=== PATIENT | male | born 1960 | race Caucasian/White ===

== ENCOUNTER → 2018-06-25 00:51 | Outpatient (CLI) | payer OTHER, SELFPAY ==
[2018-06-25 11:23] LABS: Prothrombin Time 19.1 sec (9.3-10.8)
== END ==
PROVIDERS: PCP Emergency Medicine; Visit Provider Emergency Medicine
DX: I82.221 Chronic embolism and thrombosis of inferior vena cava (principal); Z79.01 Long term (current) use of anticoagulants
CPT/HCPCS: 36415; 85610

== ENCOUNTER 2018-07-30 05:59 | Outpatient (CLI) | payer OTHER, SELFPAY ==
[2018-07-30 11:54] LABS: Prothrombin Time 22.2 sec (9.3-10.8)
[2018-07-30 12:00] LABS: INR 2.3 (1.0-3.5)
== END 2018-07-30 06:19 ==
LOC: LBO 08:04 → LOS 08:15
PROVIDERS: PCP Emergency Medicine; Visit Provider Emergency Medicine
DX: I82.221 Chronic embolism and thrombosis of inferior vena cava (principal); Z79.01 Long term (current) use of anticoagulants
CPT/HCPCS: 36415; 85610

== ENCOUNTER 2018-08-27 02:47 | Outpatient (CLI) | payer OTHER, SELFPAY ==
[2018-08-27 13:24] LABS: INR 2.6 (1.0-3.5); Prothrombin Time 24.3 sec (9.3-10.8)
== END 2018-08-27 03:07 ==
PROVIDERS: PCP Emergency Medicine; Visit Provider Emergency Medicine
DX: I82.221 Chronic embolism and thrombosis of inferior vena cava (principal); Z79.01 Long term (current) use of anticoagulants
CPT/HCPCS: 36415; 85610

== ENCOUNTER 2018-10-08 01:56 | Outpatient (CLI) | payer OTHER, SELFPAY ==
[2018-10-08 13:10] LABS: INR 2.9 (1.0-3.5); Prothrombin Time 27.1 sec (9.3-10.8)
== END 2018-10-08 02:16 ==
PROVIDERS: PCP Emergency Medicine; Visit Provider Emergency Medicine
DX: I82.221 Chronic embolism and thrombosis of inferior vena cava (principal); Z79.01 Long term (current) use of anticoagulants
CPT/HCPCS: 36415; 85610

== ENCOUNTER 2018-11-12 02:11 | Outpatient (CLI) | payer OTHER, SELFPAY ==
[2018-11-12 11:46] LABS: INR 3.1 (1.0-3.5); Prothrombin Time 31.4 sec (9.3-11.0)
== END 2018-11-12 02:31 ==
PROVIDERS: PCP Emergency Medicine; Visit Provider Emergency Medicine
DX: I82.221 Chronic embolism and thrombosis of inferior vena cava (principal); Z79.01 Long term (current) use of anticoagulants
CPT/HCPCS: 36415; 85610

== ENCOUNTER 2018-12-03 08:26 | Outpatient (CLI) | payer OTHER, SELFPAY ==
[2018-12-03 13:16] LABS: INR 2.8 (0.9-1.1)
== END 2018-12-03 08:46 ==
PROVIDERS: PCP Emergency Medicine; Visit Provider Emergency Medicine
DX: I82.221 Chronic embolism and thrombosis of inferior vena cava (principal); Z79.01 Long term (current) use of anticoagulants
CPT/HCPCS: 36415; 85610

== ENCOUNTER 2018-12-29 02:02 | Outpatient (CLI) | payer OTHER, SELFPAY ==
[2018-12-29 11:32] LABS: INR 3.1 (0.9-1.1); Prothrombin Time 31.6 sec (9.3-11.0)
== END 2018-12-29 02:22 ==
PROVIDERS: PCP Emergency Medicine; Visit Provider Emergency Medicine
DX: I82.221 Chronic embolism and thrombosis of inferior vena cava (principal); Z79.01 Long term (current) use of anticoagulants
CPT/HCPCS: 36415; 85610

== ENCOUNTER 2019-01-25 09:16 | Outpatient (CLI) | payer OTHER, SELFPAY ==
[2019-01-25 10:47] LABS: INR 3.2 (0.9-1.1)
== END 2019-01-25 09:36 ==
PROVIDERS: PCP Emergency Medicine; Visit Provider Emergency Medicine
DX: I82.221 Chronic embolism and thrombosis of inferior vena cava (principal); Z79.01 Long term (current) use of anticoagulants
CPT/HCPCS: 36415; 85610

== ENCOUNTER 2019-03-05 10:26 | Outpatient (CLI) | payer OTHER, SELFPAY ==
[2019-03-05 10:56] LABS: INR 2.3 (0.9-1.1); Prothrombin Time 23.4 sec (9.3-11.0)
== END 2019-03-05 10:46 ==
PROVIDERS: PCP Emergency Medicine; Visit Provider Emergency Medicine
DX: I82.221 Chronic embolism and thrombosis of inferior vena cava (principal); Z79.01 Long term (current) use of anticoagulants
CPT/HCPCS: 36415; 85610

== ENCOUNTER 2019-03-19 10:55 | Outpatient (CLI) | payer OTHER, SELFPAY ==
[2019-03-19 11:35] LABS: INR 2.4 (0.9-1.1); Prothrombin Time 24.5 sec (9.3-11.0)
[2019-03-21 09:54] LABS: PSA, Screening 0.5 ng/ml (0-3.5)
== END 2019-03-19 11:15 ==
PROVIDERS: Urology; PCP Emergency Medicine; Visit Provider Emergency Medicine
DX: Z12.5 Encounter for screening for malignant neoplasm of prostate (principal); I82.221 Chronic embolism and thrombosis of inferior vena cava; Z79.01 Long term (current) use of anticoagulants
CPT/HCPCS: 36415; 84153; 85610

== ENCOUNTER 2019-04-24 10:03 | Outpatient (CLI) | payer OTHER, SELFPAY ==
[2019-04-24 10:32] LABS: Prothrombin Time 25.7 sec (9.3-11.0)
[2019-04-24 10:33] LABS: INR 2.5 (0.9-1.1)
== END 2019-04-24 10:23 ==
PROVIDERS: PCP Emergency Medicine; Visit Provider Emergency Medicine
DX: I82.221 Chronic embolism and thrombosis of inferior vena cava (principal); Z79.01 Long term (current) use of anticoagulants
CPT/HCPCS: 36415; 85610

== ENCOUNTER 2019-06-02 02:02 | Outpatient (CLI) | payer OTHER, SELFPAY ==
[2019-06-02 11:15] LABS: INR 3.2 (0.9-1.1); Prothrombin Time 32.2 sec (9.3-11.0)
== END 2019-06-02 02:22 ==
PROVIDERS: PCP Emergency Medicine; Visit Provider Emergency Medicine
DX: I82.221 Chronic embolism and thrombosis of inferior vena cava (principal); Z79.01 Long term (current) use of anticoagulants
CPT/HCPCS: 36415; 85610

== ENCOUNTER 2019-07-15 03:56 | Outpatient (CLI) | payer OTHER, SELFPAY ==
[2019-07-15 11:01] LABS: Prothrombin Time 20.5 sec (9.3-11.0)
== END 2019-07-15 04:16 ==
PROVIDERS: PCP Emergency Medicine; Visit Provider Emergency Medicine
DX: I82.221 Chronic embolism and thrombosis of inferior vena cava (principal); Z79.01 Long term (current) use of anticoagulants
CPT/HCPCS: 36415; 85610

== ENCOUNTER 2019-08-10 02:32 | Outpatient (CLI) | payer OTHER, SELFPAY ==
[2019-08-10 11:55] LABS: INR 2.7 (0.9-1.1); Prothrombin Time 26.9 sec (9.3-11.0)
== END 2019-08-10 02:52 ==
PROVIDERS: PCP Emergency Medicine; Visit Provider Emergency Medicine
DX: I82.221 Chronic embolism and thrombosis of inferior vena cava (principal); Z79.01 Long term (current) use of anticoagulants
CPT/HCPCS: 36415; 85610

== ENCOUNTER 2019-09-30 01:50 | Outpatient (CLI) | payer OTHER, SELFPAY ==
[2019-09-30 11:01] LABS: INR 2.4 (0.9-1.1); Prothrombin Time 23.9 sec (9.3-11.0)
== END 2019-09-30 02:10 ==
PROVIDERS: PCP Emergency Medicine; Visit Provider Emergency Medicine
DX: I82.221 Chronic embolism and thrombosis of inferior vena cava (principal); Z79.01 Long term (current) use of anticoagulants
CPT/HCPCS: 36415; 85610

== ENCOUNTER 2019-11-03 09:02 | Outpatient (CLI) | payer OTHER, SELFPAY ==
[2019-11-03 11:12] LABS: INR 2.1 (0.9-1.1); Prothrombin Time 20.3 sec (9.3-11.0)
== END 2019-11-03 09:22 ==
PROVIDERS: PCP Emergency Medicine; Visit Provider Emergency Medicine
DX: I82.221 Chronic embolism and thrombosis of inferior vena cava (principal); Z79.01 Long term (current) use of anticoagulants
CPT/HCPCS: 36415; 85610

== ENCOUNTER 2019-12-06 10:00 | Outpatient (CLI) | payer OTHER, SELFPAY ==
[2019-12-06 12:34] LABS: INR 1.3 (0.9-1.1); Prothrombin Time 13.3 sec (9.3-11.0)
== END 2019-12-06 10:20 ==
PROVIDERS: PCP Emergency Medicine; Visit Provider Emergency Medicine
DX: I82.221 Chronic embolism and thrombosis of inferior vena cava (principal); Z79.01 Long term (current) use of anticoagulants
CPT/HCPCS: 36415; 85610

== ENCOUNTER 2019-12-13 02:13 | Outpatient (CLI) | payer OTHER, SELFPAY ==
[2019-12-13 13:48] LABS: Prothrombin Time 28.9 sec (9.3-11.0)
== END 2019-12-13 02:33 ==
PROVIDERS: PCP Emergency Medicine; Visit Provider Emergency Medicine
DX: I82.221 Chronic embolism and thrombosis of inferior vena cava (principal); Z79.01 Long term (current) use of anticoagulants
CPT/HCPCS: 36415; 85610

== ENCOUNTER 2020-01-04 08:55 | Outpatient (CLI) | payer OTHER, SELFPAY ==
[2020-01-04 13:22] LABS: INR 3.2 (0.9-1.1); Prothrombin Time 30.9 sec (9.3-11.0)
== END 2020-01-04 09:15 ==
PROVIDERS: PCP Emergency Medicine; Visit Provider Emergency Medicine
DX: I82.221 Chronic embolism and thrombosis of inferior vena cava (principal); Z79.01 Long term (current) use of anticoagulants
CPT/HCPCS: 36415; 85610

== ENCOUNTER 2020-01-28 09:48 | Outpatient (CLI) | payer OTHER, SELFPAY ==
[2020-01-28 10:14] LABS: INR 2.1 (0.9-1.1); Prothrombin Time 20.4 sec (9.3-11.0)
== END 2020-01-28 10:08 ==
PROVIDERS: PCP Emergency Medicine; Visit Provider Emergency Medicine
DX: I82.221 Chronic embolism and thrombosis of inferior vena cava (principal); Z79.01 Long term (current) use of anticoagulants
CPT/HCPCS: 36415; 85610

== ENCOUNTER 2020-03-22 10:00 | Outpatient (CLI) | payer OTHER, SELFPAY ==
[2020-03-22 13:51] LABS: INR 2.3 (0.9-1.1); Prothrombin Time 22.4 sec (9.3-11.0)
[2020-03-23 09:19] LABS: PSA, Screening 0.5 ng/mL (0.0-3.5)
== END 2020-03-22 10:20 ==
PROVIDERS: PCP Emergency Medicine; Referring Provider Urology; Visit Provider Emergency Medicine
DX: I82.221 Chronic embolism and thrombosis of inferior vena cava (principal); Z79.01 Long term (current) use of anticoagulants; Z12.5 Encounter for screening for malignant neoplasm of prostate
CPT/HCPCS: 36415; 84153; 85610

== ENCOUNTER 2020-05-10 04:43 | Outpatient (CLI) | payer OTHER, SELFPAY ==
[2020-05-11 11:45] LABS: INR 2.6 (0.9-1.1); Prothrombin Time 25.3 sec (9.3-11.0)
== END 2020-05-10 05:03 ==
PROVIDERS: PCP Emergency Medicine; Visit Provider Emergency Medicine
DX: D68.59 Other primary thrombophilia (principal)
CPT/HCPCS: 85610

== ENCOUNTER 2020-07-27 01:21 | Outpatient (CLI) | payer OTHER, SELFPAY ==
[2020-07-27 12:59] LABS: INR 2.8 (0.9-1.1); Prothrombin Time 27.3 sec (9.3-11.0)
== END 2020-07-27 01:41 ==
PROVIDERS: PCP Emergency Medicine; Visit Provider Emergency Medicine
DX: I82.221 Chronic embolism and thrombosis of inferior vena cava (principal); Z79.01 Long term (current) use of anticoagulants
CPT/HCPCS: 36415; 85610

== ENCOUNTER 2020-09-07 01:38 | Outpatient (CLI) | payer OTHER, SELFPAY ==
[2020-09-07 12:48] LABS: INR 2.7 (0.9-1.1); Prothrombin Time 26.1 sec (9.3-11.0)
== END 2020-09-07 01:58 ==
PROVIDERS: PCP Emergency Medicine; Visit Provider Emergency Medicine
DX: I82.221 Chronic embolism and thrombosis of inferior vena cava (principal); Z79.01 Long term (current) use of anticoagulants
CPT/HCPCS: 36415; 85610

== ENCOUNTER 2020-10-11 10:19 | Outpatient (CLI) | payer OTHER, SELFPAY ==
[2020-10-11 13:02] LABS: INR 2.6 (0.9-1.1); Prothrombin Time 25.3 sec (9.3-11.0)
== END 2020-10-11 10:39 ==
PROVIDERS: PCP Emergency Medicine; Visit Provider Emergency Medicine
DX: I82.221 Chronic embolism and thrombosis of inferior vena cava (principal); Z79.01 Long term (current) use of anticoagulants
CPT/HCPCS: 36415; 85610

== ENCOUNTER 2020-11-08 02:34 | Outpatient (CLI) | payer OTHER, SELFPAY ==
[2020-11-08 12:40] LABS: INR 2.7 (0.9-1.1); Prothrombin Time 26.2 sec (9.3-11.0)
== END 2020-11-08 02:54 ==
PROVIDERS: PCP Emergency Medicine; Visit Provider Emergency Medicine
DX: I82.221 Chronic embolism and thrombosis of inferior vena cava (principal); Z79.01 Long term (current) use of anticoagulants
CPT/HCPCS: 36415; 85610

== ENCOUNTER 2020-12-14 00:33 | Outpatient (CLI) | payer OTHER, SELFPAY ==
[2020-12-14 13:22] LABS: INR 2.1 (0.9-1.1)
== END 2020-12-14 00:53 ==
PROVIDERS: PCP Emergency Medicine; Visit Provider Emergency Medicine
DX: D68.59 Other primary thrombophilia (principal); I82.221 Chronic embolism and thrombosis of inferior vena cava; Z79.01 Long term (current) use of anticoagulants
CPT/HCPCS: 36415; 85610

== ENCOUNTER 2021-01-18 01:02 | Outpatient (CLI) | payer OTHER, SELFPAY ==
[2021-01-18 12:50] LABS: Prothrombin Time 39.7 sec (9.3-11.0)
[2021-01-18 13:00] LABS: INR 4.1 (0.9-1.1)
== END 2021-01-18 01:03 | disposition home or self-care (01) ==
LOC: LOS 01:02
PROVIDERS: PCP Emergency Medicine; Visit Provider Emergency Medicine
DX: Z79.01 Long term (current) use of anticoagulants (principal); I82.221 Chronic embolism and thrombosis of inferior vena cava
CPT/HCPCS: 36415; 85610

== ENCOUNTER 2021-02-27 03:10 | Outpatient (CLI) | payer OTHER, SELFPAY ==
[2021-02-27 12:07] LABS: INR 3.4 (0.9-1.1); Prothrombin Time 33.2 sec (9.3-11.0)
== END 2021-02-27 03:11 | disposition home or self-care (01) ==
LOC: LOS 03:10
PROVIDERS: PCP Emergency Medicine; Visit Provider Emergency Medicine
DX: I82.221 Chronic embolism and thrombosis of inferior vena cava (principal); Z79.01 Long term (current) use of anticoagulants
CPT/HCPCS: 36415; 85610

== ENCOUNTER 2021-03-08 01:06 | Outpatient (CLI) | payer OTHER, SELFPAY ==
[2021-03-08 12:41] LABS: INR 1.8 (0.9-1.1); Prothrombin Time 17.9 sec (9.3-11.0)
== END 2021-03-08 01:07 | disposition home or self-care (01) ==
LOC: LOS 01:06
PROVIDERS: PCP Emergency Medicine; Visit Provider Emergency Medicine
DX: D68.59 Other primary thrombophilia (principal)
CPT/HCPCS: 36415; 85610

== ENCOUNTER 2021-03-22 01:48 | Outpatient (CLI) | payer OTHER, SELFPAY ==
[2021-03-22 13:14] LABS: INR 2.4 (0.9-1.1)
== END 2021-03-22 01:49 | disposition home or self-care (01) ==
LOC: LOS 01:48
PROVIDERS: PCP Emergency Medicine; Visit Provider Emergency Medicine
DX: I82.221 Chronic embolism and thrombosis of inferior vena cava (principal); Z79.01 Long term (current) use of anticoagulants
CPT/HCPCS: 36415; 85610

== ENCOUNTER 2021-04-05 01:18 | Outpatient (CLI) | payer OTHER, SELFPAY ==
[2021-04-05 13:55] LABS: INR 2.5 (0.9-1.1); Prothrombin Time 24.3 sec (9.3-11.0)
== END 2021-04-05 01:19 | disposition home or self-care (01) ==
LOC: LOS 01:21
PROVIDERS: PCP Emergency Medicine; Visit Provider Emergency Medicine
DX: I82.221 Chronic embolism and thrombosis of inferior vena cava (principal); Z79.01 Long term (current) use of anticoagulants
CPT/HCPCS: 36415; 85610

== ENCOUNTER 2021-05-13 02:54 | Outpatient (CLI) | payer OTHER, SELFPAY ==
[2021-05-13 12:29] LABS: INR 2.3 (0.9-1.1); Prothrombin Time 22.6 sec (9.3-11.0)
[2021-05-13 17:00] LABS: PSA, Diagnostic 0.7 ng/mL (0.0-3.5)
== END 2021-05-13 02:55 | disposition home or self-care (01) ==
LOC: LOS 02:54
PROVIDERS: PCP Emergency Medicine; Visit Provider Emergency Medicine
DX: I82.221 Chronic embolism and thrombosis of inferior vena cava (principal); Z79.01 Long term (current) use of anticoagulants; N40.1 Benign prostatic hyperplasia with lower urinary tract symptoms
CPT/HCPCS: 36415; 84153; 85610

== ENCOUNTER 2021-06-28 01:40 | Outpatient (CLI) | payer OTHER, SELFPAY ==
[2021-06-28 13:03] LABS: Prothrombin Time 20.2 sec (9.3-11.0)
== END 2021-06-28 01:41 | disposition home or self-care (01) ==
LOC: LOS 01:40
PROVIDERS: PCP Emergency Medicine; Visit Provider Emergency Medicine
DX: I82.221 Chronic embolism and thrombosis of inferior vena cava (principal); Z79.01 Long term (current) use of anticoagulants
CPT/HCPCS: 36415; 85610

== ENCOUNTER 2021-08-06 01:02 | Outpatient (CLI) | payer OTHER, SELFPAY ==
[2021-08-06 12:33] LABS: INR 2.2 (0.9-1.1); Prothrombin Time 21.8 sec (9.3-11.0)
== END 2021-08-06 01:03 | disposition home or self-care (01) ==
LOC: LOS 01:02
PROVIDERS: PCP Emergency Medicine; Visit Provider Emergency Medicine
DX: I82.221 Chronic embolism and thrombosis of inferior vena cava (principal); Z79.01 Long term (current) use of anticoagulants
CPT/HCPCS: 36415; 85610

== ENCOUNTER 2021-09-13 01:54 | Outpatient (CLI) | payer OTHER, SELFPAY ==
[2021-09-13 10:04] LABS: INR 2.6 (0.9-1.1); Prothrombin Time 25.9 sec (9.3-11.0)
== END 2021-09-13 01:55 | disposition home or self-care (01) ==
LOC: LOS 01:54
PROVIDERS: PCP Emergency Medicine; Visit Provider Emergency Medicine
DX: I82.221 Chronic embolism and thrombosis of inferior vena cava (principal); Z79.01 Long term (current) use of anticoagulants
CPT/HCPCS: 36415; 85610

== ENCOUNTER 2021-10-11 02:50 | Outpatient (CLI) | payer OTHER, SELFPAY ==
[2021-10-11 12:49] LABS: INR 2.3 (0.9-1.1); Prothrombin Time 22.3 sec (9.3-11.0)
== END 2021-10-11 02:51 | disposition home or self-care (01) ==
LOC: LOS 02:51
PROVIDERS: PCP Emergency Medicine; Visit Provider Emergency Medicine
DX: D68.59 Other primary thrombophilia (principal); I74.3 Embolism and thrombosis of arteries of the lower extremities
CPT/HCPCS: 36415; 85610

== ENCOUNTER 2021-11-14 03:17 | Outpatient (CLI) | payer OTHER, SELFPAY ==
[2021-11-14 09:34] LABS: INR 1.7 (0.9-1.1); Prothrombin Time 17.3 sec (9.3-11.0)
== END 2021-11-14 03:18 | disposition home or self-care (01) ==
LOC: LBO 03:18
PROVIDERS: PCP Emergency Medicine; Visit Provider Emergency Medicine
DX: D68.59 Other primary thrombophilia (principal); I74.3 Embolism and thrombosis of arteries of the lower extremities
CPT/HCPCS: 36415; 85610

== ENCOUNTER 2021-12-12 01:58 | Outpatient (CLI) | payer OTHER, SELFPAY ==
[2021-12-12 09:53] LABS: INR 1.8 (0.9-1.1)
== END 2021-12-12 01:59 | disposition home or self-care (01) ==
LOC: LBO 01:58
PROVIDERS: PCP Emergency Medicine; Visit Provider Emergency Medicine
DX: I74.3 Embolism and thrombosis of arteries of the lower extremities (principal); D68.59 Other primary thrombophilia
CPT/HCPCS: 36415; 85610

== ENCOUNTER 2022-01-22 01:36 | Outpatient (CLI) | payer OTHER, SELFPAY ==
[2022-01-22 11:12] LABS: INR 2.2 (0.9-1.1); Prothrombin Time 21.7 sec (9.3-11.0)
== END 2022-01-22 01:37 | disposition home or self-care (01) ==
LOC: LBO 01:36
PROVIDERS: PCP Family Medicine; Visit Provider Emergency Medicine
DX: D68.59 Other primary thrombophilia (principal); I74.3 Embolism and thrombosis of arteries of the lower extremities
CPT/HCPCS: 36415; 85610

== ENCOUNTER 2022-03-14 02:08 | Outpatient (CLI) | payer OTHER, SELFPAY ==
[2022-03-14 09:13] LABS: INR 3.3 (0.9-1.1); Prothrombin Time 32.5 sec (9.3-11.0)
== END 2022-03-14 02:09 | disposition home or self-care (01) ==
LOC: LBO 02:08
PROVIDERS: PCP Family Medicine; Visit Provider Emergency Medicine
DX: D68.59 Other primary thrombophilia (principal); I74.3 Embolism and thrombosis of arteries of the lower extremities; Z79.01 Long term (current) use of anticoagulants
CPT/HCPCS: 36415; 85610

== ENCOUNTER 2022-03-20 02:49 | Outpatient (CLI) | payer OTHER, SELFPAY ==
[2022-03-20 12:46] LABS: INR 2.4 (0.9-1.1); Prothrombin Time 23.4 sec (9.3-11.0)
== END 2022-03-20 02:50 | disposition home or self-care (01) ==
LOC: LOS 02:49
PROVIDERS: Emergency Medicine; PCP Family Medicine; Visit Provider Family Medicine
DX: D68.59 Other primary thrombophilia (principal); I74.3 Embolism and thrombosis of arteries of the lower extremities; Z79.01 Long term (current) use of anticoagulants
CPT/HCPCS: 36415; 85610

== ENCOUNTER 2022-03-28 02:17 | Outpatient (CLI) | payer OTHER, SELFPAY ==
[2022-03-28 12:30] LABS: INR 2.6 (0.9-1.1); Prothrombin Time 25.2 sec (9.3-11.0)
== END 2022-03-28 02:18 | disposition home or self-care (01) ==
LOC: LOS 02:17
PROVIDERS: PCP Family Medicine; Visit Provider Emergency Medicine
DX: D68.59 Other primary thrombophilia (principal); Z79.01 Long term (current) use of anticoagulants
CPT/HCPCS: 36415; 85610

== ENCOUNTER 2022-05-01 02:17 | Outpatient (CLI) | payer OTHER, SELFPAY ==
[2022-05-01 11:00] LABS: Prothrombin Time 28.6 sec (9.3-11.0)
[2022-05-01 18:22] LABS: PSA, Diagnostic 0.6 ng/mL (<=4.5)
== END 2022-05-01 02:18 | disposition home or self-care (01) ==
LOC: LOS 02:17
PROVIDERS: PCP Family Medicine; Visit Provider Urology
DX: D68.59 Other primary thrombophilia (principal); I74.3 Embolism and thrombosis of arteries of the lower extremities
CPT/HCPCS: 36415; 84153; 85610

== ENCOUNTER 2022-06-13 02:27 | Outpatient (CLI) | payer OTHER, SELFPAY ==
[2022-06-13 13:05] LABS: INR 2.6 (0.9-1.1); Prothrombin Time 24.9 sec (9.3-11.0)
== END 2022-06-13 02:28 | disposition home or self-care (01) ==
LOC: LOS 02:27
PROVIDERS: PCP Nurse Practitioner; Visit Provider Emergency Medicine
DX: D68.59 Other primary thrombophilia (principal); Z79.01 Long term (current) use of anticoagulants
CPT/HCPCS: 36415; 85610

== ENCOUNTER 2022-08-01 01:12 | Outpatient (CLI) | payer OTHER, SELFPAY ==
--- OUTSIDE RECORDS SUMMARY | 2022-08-01 01:14 | XMS_ITS | Encounter Summary ---
:1960 Author Organization [facility] [address] Care Team Providers Name Role Phone Lianne Darnell APRN Primary Care Provider Encounter Details Date Type Department Care Team Description 12/14/2014 Ancillary Vascular Surgery at [place] Shannan Ankle ulcer, left, Appointment [facility] with fat layer [facility] [place] [id number] Social History Tobacco Use Types Packs/Day Years Used Date Never Smoker Sex Assigned at Date Recorded Not on file documented as of this encounter Plan of Treatment Not on filedocumented as of this encounter Procedures Procedure Name Priority Date/Time Associated Diagnosis Comme nts TORIBIO, LEGS, MULTIPLE Routine 12/14/2014 2:05 PM Ankle ulcer, le ft, Results for this LEVELS EST with fat layer procedure are in exposed the results section. documented in this encounter Results TORIBIO, legs, multiple levels (12/14/2014 2:05 PM EST) Component Value Ref Test Analysis Performed At [facility] Range Method Time Signature VB Text VASCUBASE Report Department: Vascular Surgery Lab Patient: [id number] (TARIK EATON) CPT Code: 13562 ICD-9: 707.10 Referring Physician: SHANNA TA Indication: ?? Bilateral ankle ulcers, ? PVD ICD9 Diagnosis Code: 707.10 Diabetes Mellitus: ??No Definitions: ?? TORIBIO = Ankle / Brachial Systolic Pressure I ndex, TBI = Toe / Brachial Systolic Pressure Index Findings: Right ?Pressure (mm Hg) ?? TORIBIO ??Waveform ?? Brachial Artery ?118 ? Common Femoral Artery ?Triphasic ?? Pop Fossa ?Triphasic ?? Dorsalis Pedis (Ankle) Artery ?134 ? 1.06 ??Biphasic ?? Posterior Tibial (Ankle) Artery ??141 ? 1.12 ??Biphasic ?? Left ? Pressure (mm Hg) ?? TORIBIO ??Waveform ?? Brachial Artery ?126 ? Common Femoral Artery ?Triphasic ?? Pop Fossa ?Triphasic ?? Dorsalis Pedis (Ankle) Artery ?146 ? 1.16 ??Biphasic ?? Posterior Tibial (Ankle) Artery ??143 ? 1.13 ??Biphasic ?? Interpretation: RIGHT: No significant lower extremity ar terial occlusive disease identified at rest. LEFT: No significant lower extremity arterial oc clusive disease identified at rest. Electronically Signed by: CLARK CAMPA on 2014-12-17 12:44: 14 AM VB Text End of Report VASCUBASE Report Specimen (Source) Anatomical Collection Method Collection Time Re ceived Time Location / / Volume Laterality 12/14/2014 2:05 PM EST Shanna Ta MD VASCULAR ORDERABLES Performing Organization Address City/State/ZIP Code Phon e Number [facility] documented in this encounter Visit Diagnoses Diagnosis Ankle ulcer, left, with fat layer expose d documented in this encounter Care Teams Domestic Helper Relationship Specialty Start Date End Date Lianne Darnell, CONVEYOR WEIGHER OPERATOR PCP - General 12/14/14 04/07/17 documented as of this encounter
--- OUTSIDE RECORDS SUMMARY | 2022-08-01 01:14 | XMS_ITS | Encounter Summary ---
:1960 Author Organization [facility] [place] [address] Care Team Providers Name Role Phone Giorgi Hogue DO Primary Care Provider Reason for Visit Reason Comments Skin Lesion Consultation (Routine) - Closed Specialty Diagnoses / Procedures Referred By Contact Refer red To Contact Dermatology Diagnoses scalp lesion Jose L Carlson MD [facility] Dermatology [address] [place], [place] [address] [place] [address] Fax: Referral ID Status Reason Start Date Expiration Date Visits V isits Requested Authorized [id number] Closed Consult, 03/10/2017 03/10/2018 1 [facility] Encounter Details Date Type Department Care Team Description 04/08/2017 Office Visit Dermatology at [facility], Neoplasm of uncertain behavior of skin; [place] (actinic keratosis); [address] [facility] [place] [address] [facility] [phone] RD-DERMATOLOGY [place] [id number] (Wo rk) Social History Tobacco Use Types Packs/Day Years Used Date Never Smoker Smokeless Tobacco: Never Used Alcohol Use Standard Drinks/Week Comments Yes 1.7 (1 standard drink = 0.6 oz pure alco hol) Sex Assigned at Date Recorded Not on file documented as of this encounter Patient Instructions Patient InstructionsVerónica Friedman MD - 04/08/2017 4:00 PM EDT Apply ammonium lactate cream (Amlactin) to hands as needed for dryness/roughness. Don't use it on open skin since it flores. See attached handout regarding topical treatment for actinic keratoses (pre- cancers) on scalp. Biopsy result will be back in about a week and you'll receive a phone call and/or message via NextMedium. Actinic Keratoses You have been diagnosed today with Actinic Keratosis (AK). These dry, scaly patches are considered the earliest stage in the development of skin cancer. In rare cases, an AK can progress to skin cancer. Because of this risk, AKs are usually treated. You were treated today with Liquid Nitrogen. This is the most common treatment for AKs. Liquid nitrogen is extremely cold, and freezes the surface of the skin, causing the lesion to flake off. Treatment with liquid nitrogen can be uncomfortable, but discomfort should subside after a couple of hours. The area treated will look red and irritated, and it may blister up or turn dark, then fall off. This is normal! You do not need any special treatment for the area, but you may find cold compresses and/or a light application of Vaseline soothing. For best results, do not rub or pick at the healing lesion. Expected healing time is 3-4 weeks. Please contact the Dermatology clinic at [phone] if the lesion has not fully resolved after 6 weeks. Treatment and Wound Care Instructions Your treatment today: You have had a shave biopsy of your skin, which is a removal of tissue for examination under a microscope. This wound will heal without stitches. Allow 3-6 weeks for the wound to heal. If bleeding occurs, hold firm pressure against the wound for 15 minutes. If bleeding continues, calls the office or go to your local emergency room. Please allow 1-2 weeks for the biopsy results to return. Your physician or nurse will contact you with the results by phone or letter; follow-up will be discussed at that time. Wound Care Instructions: You will need to keep the dressing placed over the wound dry and intact for 24 hours. Afterwards, perform the following wound care daily: ?? Wash your hands before changing the dressing. ?? Remove the bandage and clean the area with mild soap and water, then gently pat the area dry. ?? Apply a small amount of Vaseline to the area, then cover the wound with a band-aid. Change your dressing daily until the wound is fully healed. ?? A small amount of yellow drainage is part of normal healing. The area might appear as a small depression with redness around the edge of the wound. This is normal. ?? Please contact the office you you notice any of the following signs of infection: increased tenderness, pain, drainage, or redness that becomes hot or hard around the wound. If you have further questions or concerns, please call the office at [phone]. If it is after 5PM, or a holiday or weekend, please call [phone] and ask for the Tank Worker on-call. documented in this encounter Progress Notes Verónica Friedman MD - 04/08/2017 4:00 PM EDT Images from the original note were not included. DERMATOLOGY - NEW PATIENT NOTE Date of service: 04/08/2017 Tarik Sanchez : 1960 Dermatology Resident Note: Verónica Friedman MD, PGY4 Chief Complaint Patient presents with ??? Skin Lesion HPI: Mr. Tarik Sanchez is a 56 y.o. male. This is a new patient to me, seen in consultation at the request of Jose L Carlson specifically for the evaluation and management of the above problem. Here for lesions on his scalp, present approx 6 months. Symptoms: scaly, sometimes they bleed, non itchy. Leroy atments tried: Dermasal for psoriasis which seems to be helping, tea tree shampoo, triamcinolone (but stopped since it seemed it wasn't helping). While here he'd like a full skin exam. 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 Exposed headand seldom wears hat. He would like his back evaluated. He has a spot on his left mid back that itches and goes numb after sun exposure. Wonders whether it's related to a mole there. He has a darkened area on his inner ankles and believes it's from having had a DVT. Wonders if thereis any treatment option for lightening. Wears compression stocking on side that had the DVT. Also feels like his hands look old. He uses Neutrogena Serbian hand cream and wonders whether there are any other treatment options. Does not wash hands excessively. Past Skin History: None Patient Active Problem List Diagnosis Code ??? Venous insufficiency of leg I87.2 ??? DVT (deep venous thrombosis) hx bilateral LE I82.409 ??? Protein S deficiency D68.59 ??? Venous stasis ulcers of both lower extremities I83.019, I83.029 ??? BPH (benign prostatic hypertrophy) N40.0 ??? History of cleft palate repair Z87.730 Major past medical history from patient's perspective (updated today) DVT Clotting disorder Pre-Procedure Checklist: Pacemaker/defibrillator: No Allergy to lidocaine or epinephrine: No Do we have your permission to leave a voicemail with biopsy results and other detailed health information? Yes [phone] Current Outpatient Prescriptions Medication Sig Dispense Refill ??? warfarin (COUMADIN) 10 mg Tablet Take 10 mg by mouth daily. Pt takes 15 mg on wed/sun ??? finasteride (PROSCAR) 5 mg Tablet Take 5 mg by mouth daily. ??? multivitamin (THERAGRAN) tablet ??? DOCOSAHEXANOIC ACID/EPA (FISH OIL ORAL) ??? Cmzdvvsbdxu-Xyvjkzxee-Tqi C-Mn (GLUCOSAMINE 1500 COMPLEX) 500-400 mg Cap No current facility-administered medications for this visit. No Known Allergies Family History: Melanoma or non-melanoma skin cancer: none Social/Occupational History: Occupation: [employer] Smoking: no Raised on dairy farm Owns boat Review of Systems: - General: Feels well. - Skin: As per HPI; no other skin concerns. Examination: - Constitutional: Patient was alert, well-appearing and in no noticeable distress. - Skin: Skin examination of the scalp, face, chest, abdomen, back, buttocks, bilateral upper and lower extremities including palms and soles was normal with the exception of the findings listed below. External genitalia were not examined. Notable findings/Assessment/Plan: 1. Actinic Keratosis - frontal scalp: numerous gritty pink irregularly shaped thin papules and plaques. - Discussed multiple treatment options including photodynamic therapy and Efudex. Joint decision to start Efudex. - Efudex 5% cream: apply to frontal scalp BID for 3 weeks. Discussed risk for inflammation/irritation and coping strategies. Urged patient to call clinic if response is uncomfortably exuberant. 2. Actinic Keratosis - right dorsal hand: approx scaly irregular pink plaque. - I discussed this condition with the patient and explored therapeutic options. I recommended this be treated with LN2, patient is in agreement to this treatment plan. Procedure Note: Procedure: Destruction of lesion with cryotherapy. Number: 1 Location: as above Discussed procedure and expectations including risks (including risk of hypopigmentation) and benefits. Verbal consent obtained. Frozen with LN2, 15-30 second thaw time, TWICE. There were no complications; the patient tolerated the procedure well. Post-procedure expectations and wound care were reviewed. 3. Blue nevus vs early seborrheic keratosis - Mid upper back, just to the right of spine: 1 x 1 mm homogenous grayish brown macule - Benign appearing. No intervention needed. Patient reassured. 4. Nevus, r/o atypia - Left lateral lower le.4 x 0.3 cm brown irregularly shaped macule with uneven pigmentation. - Recommend biopsy to establish firm diagnosis. Pt agrees. Procedure: Shave removal of lesion. Location: Left lateral lower leg Discussed indications for procedure and expectations including risks and benefits. Verbal consent obtained. Skin prep with alcohol. Local anesthesia with 1% xylocaine, 1/100,000 epinephrine. The lesionwas removed by shave technique to the level of the dermis and submitted to Pathology. Hemostasis obtained. (AlCl and/or electrocautery). There were no complications; the pt. tolerated the procedure well. The wound was dressed. Post-procedure expectations, wound care and activity restrictions were reviewed. Follow-up based on pathology results. 5. 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 - Discussed diagnosis and possible relationship to irritated/inflamed nerve causing paresthesia. Notalgia paresthetica occurs in this location but is a condition characterized by itch rather than numbness. A different type of neurogenic itch (brachoradial pruritus) is thought possibly to be triggered by sun exposure. Perhaps his symptoms share pathophysiology with these other entities. No intervention needed at present given rarity and mildness of symptoms. 6. Hemosiderin deposition - bilateral medial ankles: well demarcated hyperpigmented patches. 2+ DP pulses bilaterally. No peripheral edema. - Continue compression stocking. - Advised pt that there are no effective options for lightening the skin. 7. Irritant/wear and tear hand dermatitis - Scaly flesh-colored thin plaques on dorsal hands. No inflammation. - Recommend OTC ammonium lactate lotion. Do not apply if fissured areas occur. 8. Skin cancer screening - No lesions suspicious for skin cancer on today's full skin exam, except as noted above. The following photos were obtained with patient consent: Left lateral lower leg Follow-up: RTC per path and in 1 year. I, BRADLY SHARP LPN, am documenting this encounter acting as the scribe for and in the presence of Dr. Verónica Friedman. Fatuma Rand, Clinical Scribe I performed the above scribed service and agree with the accuracy of the documentation of this encounter. Verónica Friedman MD, PGY4 Resident in Dermatology [facility] Patient seen and evaluated with staff garment alteration examiner: Jaye Austin MD Section of Dermatology [facility] Jaye Austin MD - 04/08/2017 4:00 PM EDT I directly supervised Dr. Friedman during this office visit. Dr. Friedman presented the history and physicalexam to me. I then saw and examined this patient with Dr. Friedman. We reviewed the history and pertinent details and I confirmed the physical findings. I agree with the details of the history and physicalexam as documented in Dr. Friedman's note. JAYE AUSTIN MD Staff Physician documented in this encounter Plan of Treatment Not on filedocumented as of this encounter Procedures Procedure Name Priority Date/Time Associated Diagnosis Comme nts SPECIMEN TO Routine 04/08/2017 4:38 PM Neoplasm of Results f or this PATHOLOGY (NON-OR) EDT uncertain behavior pro cedure are in of skin the results section. SURGICAL PATHOLOGY Routine 04/08/2017 4:38 PM Res ults for this REPORT EDT procedure are i n the results section. documented in this encounter Results Surgical Pathology Report (04/08/2017 4:38 PM EDT) Component Value Ref Test Analysis Performed At [facility] Range Method Time Signature Surgical [id number] ?Location: [facility] Report The signing pathologist has (i) examined the relevant preparation(s) for the [facility] specimen(s) and (ii) rendered or confirmed the diagnosis(es) . [facility] . ?Surgic al Pathology DIAGNOSIS Skin, left lateral lower leg, shave removal: - LENTIGINOUS JUNCTIONAL NEV US, not identified at the histologic edges in planes of section examined Electronically signed by: ??Nicky VALENZUELA, Jong Booth Verified: ??04/09/2017 ?Dermatopathologist, Bone & Soft Tissue Pathologist DISCUSSION Multiple deeper sections have been examined. CLINICAL INFORMATION Specimen Submitted: A - Skin, left lateral lower leg, shave removal (1) Clinical History: 0.4 x 0.3 cm brown irregularly-shaped macule with uneven pig mentation Clinical Diagnosis: Nevus, rule out atypia SPECIMEN PROCESSING A - Labeled/Fixative: Left lateral lower leg, formalin. Quantity/Size: Single, 0.8 x 0.7 x 0.1 cm. Tissue Description: Shave of soft medina sk in with a central, ill defined area of variegated pigmentation. Sections/Processing: Inked and quadrisected. (T1) ??ksb Specimen (Source) Anatomical Collection Method Collection Time Re ceived Time Location / / Volume Laterality 04/08/2017 4:38 PM EDT Verónica Friedman MD PATHOLOGY/CYTOLOGY ORDERABLE S Performing Organization Address City/State/ZIP [place] [address] Specimen to Pathology (NON-OR) (04/08/2017 4:38 PM EDT) Specimen Anatomical Collection Method Collection Time Receive d Time (Source) Location / / Volume Laterality AP Specimen 04/08/2017 4:38 PM 7 6:48 EDT PM EDT Narrative [facility] - 04/08/2017 6:48 PM EDT Specimen requisition ordered. ??Separate Pathology report to follow Resulting Agency Comment Spec In Lab Jaye Austin MD PATHOLOGY/CYTOLOGY ORDERABLE S Performing Organization Address City/[facility]/ZIP [place] [address] documented in this encounter Visit Diagnoses Diagnosis Neoplasm of uncertain behavior of skin AK (actinic keratosis) Actinic keratosis Skin cancer screening Screening for malignant neoplasm of the skin documented in this encounter Care Teams Crime Scene Specialist Relationship Specialty Start Date End Date Giorgi Hogue DO PCP - General Family Medicine 04/08/[address] [place] [address] documented as of this encounter
--- OUTSIDE RECORDS SUMMARY | 2022-08-01 01:14 | XMS_ITS | Encounter Summary ---
:1960 Author Organization [facility] [place] [address] Care Team Providers Name Role Phone Lianne Garcia APRN Primary Care Provider Reason for Visit Reason Comments Circulatory Problem peripheral venous insuff Establish Care Encounter Details Date Type Department Care Team Description 12/14/2014 Office Visit Vascular Surgery at [facility] stasis ulcers of both lower extremities; [facility] [place] [place] Venous insufficiency of leg; [facility] DVT (deep venous thrombosis), right [facility] [address] Elder ID VASCULAR SURGERY [id number] [place] [id number] [phone] Social History Tobacco Use Types Packs/Day Years Used Date Never Smoker Sex Assigned at Date Recorded Not on file documented as of this encounter Last Filed Vital Signs Vital Sign Reading Time Taken Comments Blood Pressure 106/62 12/14/2014 2:54 PM EST L arm Pulse 62 12/14/2014 2:54 PM EST Temperature - - Respiratory Rate 20 12/14/2014 2:54 PM EST Oxygen Saturation - - Inhaled Oxygen Concentration - - Weight 80.7 kg (178 lb) 12/14/2014 2:54 PM EST Height 185.4 cm (6' 1) 12/14/2014 2:54 PM EST Body Mass Index 23.48 12/14/2014 2:54 PM EST documented in this encounter Patient Instructions Patient InstructionsFilVipin acevedo MD - 12/15/2014 9:03 AM EST We will schedule return to clinic with ultrasound studies, and send you a letter in the mail or callon the phone for the appt. documented in this encounter Progress Notes Vipin Bryan MD - 12/14/2014 3:13 PM EST Tarik Eaton presents to the vascular clinic in consultation from LIANNE GARCIA APRN regarding bilateral lower extremity ulcers and possible venous insufficiency. Mr Eaton is a 54 y.o. who has a hxof RLE DVT many years ago, and is on life-long Coumadin for Protein S deficiency. He developed bilateral medial ankle ulcers R>>L in October, a particularly heavy period of activity for him at work at [employer]. He made it through the holiday nye and then took two weeks off to do leg elevation andget the ulcers healed, with significant improvement by report. 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 There is no reported history of PE, thombophlebitis, bleeding, or leg trauma. 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 Past medical/surgical history: Patient Active Problem List Diagnosis ??? Venous insufficiency of leg ??? DVT (deep venous thrombosis) hx right LE ??? Protein S deficiency ??? Venous stasis ulcers of both lower extremities History Social History ??? Marital Status: Spouse Name: N/A Number of Children: N/A ??? Years of Education: N/A Occupational History ??? Not on file. Social History Main Topics ??? Smoking status: Never Smoker ??? Smokeless tobacco: Not on file ??? Alcohol Use: Not on file ??? Drug Use: Not on file ??? Sexual Activity: Not on file Other Topics Concern ??? Not on file Social History Narrative Family history: includes varicose veins and LE swelling (mother). Current Outpatient Prescriptions on File Prior to Visit Medication Sig Dispense Refill ??? multivitamin (THERAGRAN) tablet ??? DOCOSAHEXANOIC ACID/EPA (FISH OIL ORAL) ??? Gnnzlmifagx-Ykvnlnwui-Hyn C-Mn (GLUCOSAMINE 1500 COMPLEX) 500-400 mg Cap ??? [DISCONTINUED] CIS Free Text Med - Vitamin E-400 ??? [DISCONTINUED] aspirin 325 mg tablet No current facility-administered medications on file prior to visit. Allergies: No Known Allergies On physical exam, the patient is pleasant and conversant. Blood pressure 106/62, pulse 62, resp. rate 20, height 185.4 cm (6' 1), weight 80.74 kg (178 lb). There are no carotid bruits. Lung mcclure areclear bilaterally. Cardiac exam reveals a regular rate and rhythm with no remarkable murmurs or gallops. Abdominal exam reveals no bruits, tenderness, or masses. Femoral pulses are palpable bilaterally. Pedal pulses are palpable bilaterally. On the right lower extremity, there are moderate varicosities, with venous stasis changes and ulceration almost exclusively around the right medial malleolus. Onthe left there are there are mild/moderate varicosities, with venous stasis changes and a smaller ulceration again almost exclusively around the medial malleolus. Both sides appear to have healing edges. There is little/no calf/pedal edema bilaterally, but this is just after removing compression stockings. Both feet are relatively warm and without evidence of emboli or tissue-threatening ischemia. Neurologic exam is focally intact. Imp/Plan: Tarik Eaton is a 54 y.o. year old with bilateral R>L lower extremity venous stasis ulcers by appearance and history, causing significant symptoms that interfere with work. I explained that this is likely related to deep venous insufficiency and possibly some element of superficial venous insufficiency, but in a minority of patients the superficial veins will be the primary etiology. Heneeds a duplex to determine if this is superficial, internet researcher or deep disease (or all 3) before we can determine whether we can alleviate or even palliate these symptoms. I explained that deep venous reflux is not well treated with surgery, and can only be treated with compression stockings and elevation. He is already wearing compression stockings dutifully, and elevating his legs when he gets home from work. We will obtain a duplex to evaluate the superficial and deep venous system valve function, which will help determine options. I explained that even if a surgical solution is possible, there will still be a requirement for long-term therapy with custom compression stockings and leg elevation. This will be difficult at work, but the natural history of this condition is deterioration even with palliative care. Follow-up will be in clinic after his duplex is scheduled. After discussion he seems to understand all of this, and will contact us if the ulcers start to worsen again. 21 minutes of this 30 minute visit were spent in face-face counseling about the aforementioned issues. Vipin Bryan MD documented in this encounter Miscellaneous Notes Addendum Note - Karin Light RN - 12/15/2014 3:22 PM EST Addended by: KARIN LIGHT on: 12/15/2014 03:22 PM Modules accepted: Orders documented in this encounter Plan of Treatment Not on filedocumented as of this encounter Results Venous Valvular Incomp, Bilat Legs (01/17/2015 12:45 PM EST) Component Value Ref Test Analysis Performed At [facility] Chroma Range Method Time Signature VB Text VASCUBASE Report Department: Vascular Surgery Lab Patient: [id number] (TARIK EATON) CPT Code: 35271 ICD-9: 459.81; 454.1 Referring Physician: VIPIN BRYAN Indication: ??History of DVT and bilateral lower extremity venous ulcers, ? valvular incompetence ICD9 Diagnosis Code: 454.1 Venous Insufficiency [459.81]. Findings: Right ?Reflux? Common Femoral Vein ?Reflux ? Femoral Vein ? Reflux ? Popliteal ?Reflux ? Posterior Tibial Vein ??Reflux ? GSV, Near SFJ ?Competent ?? GSV, Proximal Thigh ?Competent ?? GSV, Mid Thigh ? Competent ?? GSV, Distal Thigh ?Competent ?? GSV, ??Knee ? Competent ?? GSV Prox Calf ?Competent ?? GSV, Mid Calf ?Competent ?? SSV ?Competent ?? Left ? Reflux?Diameter (mm) ? ?Depth (mm) ?? Common Femoral Vein ?Competent ? Femoral Vein ? Reflux ? Popliteal ?Reflux ? Posterior Tibial Vein ??Competent ? GSV, Near SFJ ?Reflux ? 5.7 ? 6.0 ?? GSV, Proximal Thigh ?Reflux ? 5.3 ?10.1 ?? GSV, Mid Thigh ? Reflux ? 5.0 ? 8.2 ?? GSV, Distal Thigh ?Reflux ? 5.0 ? 7.4 ?? GSV, ??Knee ? Reflux ? 4.0 ? 6.2 ?? GSV Prox Calf ?Reflux ? 4.9 ? 4.5 ?? GSV, Mid Calf ?Reflux ? 3.8 ? 2.9 ?? GSV, Distal Calf ? Reflux ? 2.7 ? 6.0 ?? SSV ?Competent ? Interpretation: RIGHT: There is non-occlusive deep vein thrombus in the femoral vein from the proximal through distal thigh as well as in the popliteal ve in. Findings consistent with deep venous valvular incompetence. No evidence of superficial venous valvular incompetence. The common femoral , femoral vein through the thigh, popliteal, posterior tibial and peroneal veins are incompetent. There is an inc ompetent internet researcher in the distal medial ankle near the healed ulcer measuring approximately 4.2 mm in diameter (reflux >2.6 seconds). No evidence of superficial vein thrombus. Reflux in the deep system ranges from >0.6 - >3.1 seconds. LEFT: There is non-occlusive deep vein thrombus in the femoral vein from the proximal through mid thigh. Findings consistent with cale p and superficial venous valvular incompetence. The femoral and popliteal veins are incompetent. The great saphe nous vein is incompetent from the level of the saphenofemoral junct ion through the distal calf. There is an incompeten t internet researcher in the mid/distal medial calf measuring approximately 4.2 mm in diameter (reflux >2.5 seconds). No e vidence of superficial vein thrombus.There is a trace amount of reflux in the small saphenous vein. No evidence of superficial vein thrombus. Reflux in the deep system ranges from >1.0 - >1.3 ??seconds . Reflux in the great saphenous vein is > 1.1 seconds. Comparison: ??No previous study in our vascular lab da tabase for comparison. Electronically Signed by: VIPIN BRYAN on 2015-01-17 04:40 :04 PM VB Text End of Report VASCUBASE Report Specimen (Source) Anatomical Collection Method Collection Time Re ceived Time Location / / Volume Laterality 01/17/2015 12:45 PM EST Vipin Bryan MD VASCULAR ORDERABLES Performing Organization Address City/State/ZIP Code Phon e Number VASCUBASE documented in this encounter Visit Diagnoses Diagnosis Venous stasis ulcers of both lower extre mities Venous insufficiency of leg Unspecified venous (peripheral) insuffic iency DVT (deep venous thrombosis), right documented in this encounter Care Teams Operations And Maintenance Supervisor Relationship Specialty Start Date End Date Lianne Garcia, HARDWARE SALES ASSISTANT PCP - General 12/14/14 04/07/17 documented as of this encounter
--- OUTSIDE RECORDS SUMMARY | 2022-08-01 01:14 | XMS_ITS | Encounter Summary ---
:1960 [place] [address] Care Team Providers Name Role Phone Giorgi Hogue DO Primary Care Provider Reason for Visit Reason Comments Skin Check Encounter Details Date Type Department Care Team Description 05/11/2018 Office Visit Dermatology at [facility] [place] Lowell Griggs [place] (actinic keratosis); [facility] MD [place]; [address] Multiple benign nevi; [place] [address] [address] [address] Mcneal angioangie; [phone] [facility] Seborrheic marisol melton -DERMATOLOGY [place] [id number] Social History Tobacco Use Types Packs/Day Years Used Date Never Smoker Smokeless Tobacco: Never Used Alcohol Use Standard Drinks/Week Comments Yes 1.7 (1 standard drink = 0.6 oz pure alco hol) Sex Assigned at Date Recorded Not on file documented as of this encounter Progress Notes Lowell Griggs MD - 05/11/2018 1:15 PM EDT Images from the original note were not included. DEPARTMENT DERMATOLOGY AT [facility] Dermatology At [facility] [address] [facility] [id number] FOLLOW-UP Chief Complaint: lesion History of Present Illness Tarik Sanchez is a 57 y.o. male. Complains of rough lesions on the right hand that were first identified a few months ago. Mildly tender. No bleeding. Never been treated or biopsied. Requests full body skin cancer screening. No other suspicious lesions. Interval changes to Medications and Medical, Family and Social Histories (including alcohol and tobacco use) Since Last Visit 04/08/2017: No significant interval history. Skin Cancer History No personal history of skin cancer No family history of skin cancer Allergies Pollen extracts Medications has a current medication list which includes the following prescription(s): fluorouracil, triamcinolone, warfarin, finasteride, multivitamin, docosahexanoic acid/epa, and glucosamine 1500 complex. Social History Tobacco use - never Alcohol use - yes Review of Systems Significant for no pertinent and acute changes in constitutional, other skin systems upon specific queries. Examination Standby: Wes Jacome-Jr Mood is appropriate. Well developed, well-nourished in no apparent distress, alert and oriented to time, person, place and situation. Patient was asked to disrobe to the level of comfort. Examination of the head - including the scalp,face, ears, nose, lips, tongue, oral mucosa - neck, chest, abdomen, back, axillae, upper and lower extremities, including the nail plates, significant for the following: ?? [place], hyperkeratotic slightly irregular papules on the right dorsum hand x 2, dorsum left hand x 1, hypertrophic AK on the right dorsum hand x 1 [Total AK: 4] ?? firm keratin papule with no thrombosed vessel on the lateral aspect of the ball of the left foot ?? Well-demarcated, round or oval, medina or brown macules and papules with benign morphology on the head, neck, trunk and extremities ?? Moderate to severe sun-damage on sun-exposed areas including irregular medina macules on sun-exposedareas and epidermal thinning with dyspigmentation and/or telangectia sun-exposed areas of the neck, chest. ?? Multiple, mcneal red 1-4mm papules on the head, trunk ?? Scattered, stuck-on, well-demarcated, medina or brown, waxy or warty papules c/w SKs on the back Assessment and Plan Actinic Keratoses Counseled: AKs, risk for progression to SCCs, and treatment options, including observation, cryotherapy, topicals, and PDT. Answered all questions. Handout given. Total 4 treated with cryotherapy, 1 cycle at 3-6 seconds for each, after verbally discussing the disease and treatment options, cryotherapy method, expected results/course and potential adverse effects, including crusting, persistent erythema, scar, blister, pain, dyspigmentation, and recurrence. Patie nt verbally agreed. Patient tolerated well with no complications. Wound care instructions provided. If no resolution in 21d or if scaling recurs after initial resolution, may contact clinic for re-evaluation and management. Clavus Counseled: Clavus, etiology, caused by pressure, treatment options including cryotherapy or using a cushion in his shoes. Ok to continue to pick it off, patient elects to try a cushion in his shoes Nevi Morphology reassuring for benign nevi. Counseled: Nevi and risks for melanoma arising in a nevus. Recommend regular self-examinations. Answered all questions. Reviewed ABCDEs of melanoma, as below. Return to clinic prn for changes in color, size, shape or thickness or should bleeding or other symptoms occur. Patient agrees to plan. Solar Damage, including Lentigines Benign but evidence of moderate to severe chronic sun damage. Counseled: risks for skin cancer, thinning of skin. Discussed lentigines, sun damage and spontaneousdevelopment, rare risk of lentigo maligna (melanoma arising in a lentigo), sun protection, no treatment necessary but discussed cosmetic options, including topical bleaching agents, as well as chemicalpeels and lasers. Answered all questions. Handout on lentigines and sun protection given to the patient. Mcneal Angiomas Counseled: mcneal angiomas. Benign. No treatment necessary unless symptoms develop. Handout given. Seborrheic Keratoses Benign. No treatment necessary. Counseled: SKs, benign, treatment options for symptomatic lesions. Answered all questions. Handout given Patient Counseled [Skin Cancer] Counseled: sun protection, regular self skin exams, provider skin exams every 12 months, and the ABCDEs of melanoma/NMSC. Answered all questions. Handouts on how to do a self-exam, skin cancers and sunprotection given to the patient. Follow-up: Skin cancer screening in 12 months or return to clinic prn for new suspicious lesions or if changes/symptoms in existing lesions develop. Note initiated by BRET HERBERT has performed the documentation for this encounter in the presence of andacting as a scribe for Dr. Griggs. I performed the above scribed service and agree with the accuracy of the documentation in this encounter. Lowell Griggs MD [facility] Section of Dermatology [facility] documented in this encounter Plan of Treatment Not on filedocumented as of this encounter Visit Diagnoses Diagnosis AK (actinic keratosis) Actinic keratosis Clavus Corns and callosities Multiple benign nevi Benign neoplasm of skin, site unspecifie d Mcneal angioma Nevus, non-neoplastic Seborrheic keratosis Other seborrheic keratosis documented in this encounter Care Teams Rip/Mould Operator Relationship Specialty Start Date End Date Giorgi Hogue DO PCP - General Family Medicine 04/08/[address] [place] [address] [address] [place] [address] documented as of this encounter
--- OUTSIDE RECORDS SUMMARY | 2022-08-01 01:14 | XMS_ITS | Encounter Summary ---
:1960 Author Organization [facility] [place] [address] Care Team Providers Name Role Phone Talon Moyer MD Primary Care Provider Encounter Details Date Type Department Care Team Description 12/04/2014 Orders Only Vascular Surgery at [facility], Shannan An kle ulcer, left, [facility] L, [place] [phone] Social History Tobacco Use Types Packs/Day Years Used Date Never Assessed Sex Assigned at Date Recorded Not on file documented as of this encounter Plan of Treatment Not on filedocumented as of this encounter Results TORIBIO, legs, multiple levels (12/14/2014 2:05 PM EST) Component Value Ref Test Analysis Performed At [facility] Range Method Time Signature VB Text VASCUBASE Report Department: Vascular Surgery Lab Patient: [id number] (TARIK EATON) CPT Code: 87201 ICD-9: 707.10 Referring Physician: SHANNA TA Indication: [...] d documented in this encounter Care Teams French Weaver Relationship Specialty Start Date End Date Talon Moyer MD PCP - General 10/15/10 12/13/14 [address] [place] [address] documented as of this encounter
--- OUTSIDE RECORDS SUMMARY | 2022-08-01 01:14 | XMS_ITS | Encounter Summary ---
:1960 Author Organization [facility] Address [facility] [address] [place] [address] Care Team Providers Name Role Phone Giorgi Hogue DO Primary Care Provider Encounter Details Date Type Department Care Team Description 01/22/2022 Office Visit Dermatology at [facility] Mauricio Julien, Kenneth eoplasm of uncertain behavior of skin (Primary Dx); [place] Actinic keratoses; [address] [facility] Lentigines; [place] [address] Seborrheic keratoses; [phone] [facility] Multiple benign nevi [facility] [place], [place] [address] Social History Tobacco Use Types Packs/Day Years Used Date Never Smoker Smokeless Tobacco: Never Used Alcohol Use Standard Drinks/Week Comments Yes 1.7 (1 standard drink = 0.6 oz pure alco hol) Sex Assigned at Date Recorded Not on file documented as of this encounter Progress Notes Mauricio Julien MD - 01/22/2022 2:00 PM EST Images from the original note were not included. DEPARTMENT OF DERMATOLOGY Medical Dermatology Clinic Provider: Mauricio Julien MD Patient's preferred name Tarik Preferred contact method for results [x]Phone []myD-H []Letter Detailed phone message OK? Yes Are there any other people with whom we may discuss your care? Past Medical History Date, location, treatment Melanoma No Dysplastic nevi No SCC No BCC No AKs No UV Exposure & Protection + history of blistering sunburn Other relevant past medical history Family History Details Melanoma No NMSC No Other relevant family history No Social History Occupation: Hobbies: Other: PRE-PROCEDURE SCREENING Details Allergy to lidocaine, epinephrine, Dermabond, chlorhexidine, or adhesives No Bleeding disorder or blood thinners Yes - Warfarin Pacemaker, defibrillator, deep brain stimulator, cochlear implant No History of Present Illness: Tarik Sanchez is a 61 y.o. Patient is new and self- referred to the clinic for FSE. Patient denies any specific skin concerns today; no lesions that are new, changing or symptomatic. Medications: Reviewed in eD-H Allergies: Reviewed in eD-H Skin Examination: Full skin examination: Patient asked to undress to their comfort level. Verbalized that the provider???s preference is that the patient remove all clothing and that the provider will not examine areas patient elects to keep covered. Patient elects to keep underwear on and have the following examined: s calp, hair, face, ears, neck, chest, axillae, abdomen, back, and upper and lower extremities. Genitalia and buttocks were not examined. Assessment/Plan #. Nevus R/O Dysplasia - on the upper central back, 0.2cm dark brown macule with uneven pigment (Figure 1). - Recommended a skin biopsy to confirm/clarify the nature of the skin lesion. After discussion of potential risks (scarring, bleeding, infection) and recurrence, patient agreed to proceed. - Patient denies known allergies to lidocaine and epinephrine. Procedure: Skin shave biopsy Location: upper central back Time of procedure: 2:38 PM Discussed indications for procedure and expectations including risks and benefits. Verbal consent obtained. Time out performed. Skin prepped with alcohol. Local anesthesia with 1% xylocaine, 1/100,000 epinephrine. A sample of the lesion was removed by shave technique to the level of the dermis and subm itted to Pathology. Hemostasis obtained (AlCl). There were no complications; patient tolerated the procedure well. Wound dressed. Post-procedure expectations, wound care and activity restrictions reviewed. - Follow-up based on pathology results. #. Actinic Keratoses - Ill-defined gritty papules on the face x3 and the upper back x1 - Explained premalignant potential of these lesions. - Discussed treatment with cryotherapy. Patient elects to proceed with cryotherapy today. - Instructed patient to return to clinic for re-evaluation if lesion(s) does not resolve as expectedwith this treatment. - Start Rx 5-fluorouracil (Efudex) 5% cream: Apply a thin layer to affected areas on the scalp twicedaily (morning and night) as tolerated for 3 weeks. - Reviewed expectations, typical reaction, and restrictions on light exposure during treatment. Patient understands that affected area will likely become red, irritated and tender during treatment and that this is a normal reaction. Discussed option to hold treatment for 1-2 days if inflammation becomes too intense or patient experiences discomfort. Advised patient to call clinic if pain is excessiveor infection is suspected. - Instructed patient to return to clinic for re-evaluation if lesion(s) does not resolve as expectedwith this treatment. Procedure: Destruction of lesion(s) with cryotherapy (LN2). Location(s): As noted above. Number: 4 Discussed procedure and expectations, including risks and benefits. Verbal consent obtained. Treatedwith LN2. There were no complications; Patient tolerated the procedure well. Post-procedure expectations and wound care reviewed. #. Lentigines - Scattered light-brown, evenly pigmented, well-demarcated macules on sun-exposed areas of the trunk and extremities. - No worrisome pigmented lesions. Discussed benign nature of lesions and provided reassurance. Will continue to monitor. #. Seborrheic Keratoses - Stuck on, waxy papules on the trunk and extremities. - Discussed benign nature of lesions and provided reassurance. No treatment necessary at this time. #. Benign Nevi - Scattered medium brown, evenly pigmented macules and papules on the trunk and extremities with reassuring pigment pattern on dermoscopy. - Discussed benign nature of lesions and provided reassurance. Will continue to monitor. Figure 1 Photo(s) taken and charted with patient's verbal consent. Other: ??? N/A RTC: 1 year for FSE []Note routed to guidance secretary [x]Recall placed in scheduling system []Appointment scheduled at checkout Scribe attestation: KERRIE Gerard has performed the documentation for this encounter in the presence of and acting as a scribe for Mauricio Julien MD. I performed the above scribed service and agree with the accuracy of the documentation in this encounter. Reviewed and signed by: Mauricio Julien MD Dermatology [facility] Patient seen and evaluated with staff cone worker: Gita Marquez MD Dermatology [facility] Gita Marquez MD - 01/22/2022 2:00 PM EST I directly supervised the Dermatology resident during this office visit. The resident presented the history and physical exam to me. I then saw and examined this patient with the resident. We reviewed the history and pertinent details and I confirmed the physical findings. I agree with the details of the history and physical exam as documented in the resident's note. GITA MARQUEZ MD Staff Physician Mauricio Julien MD - 01/22/2022 2:00 PM EST Called the patient to convey the biopsy result which showed combined nevus with some atypical cells.Discussed that patient will not need any further intervention for this mole, but going forward we will keep a close eye on his nevi and have him come for regular skin exams. Also counseled the patient to let us know if pigment reoccurs at the biopsy site or if any mole is changing in size shape or color. DIAGNOSIS Upper central back, skin shave biopsy: - ??Intradermal melanocytic nevus combined with pigmented epithelioid (blue nevus and ??clonal) components, abut the deep specimen edge ?(see discussion) documented in this encounter Plan of Treatment Not on filedocumented as of this encounter Procedures Procedure Name Priority Date/Time Associated Diagnosis Comme nts SURGICAL PATHOLOGY Routine 01/22/2022 2:57 PM Res ults for this REPORT EST procedure are i n the results section. SPECIMEN TO Routine 01/22/2022 2:57 PM Neoplasm of Results f or this PATHOLOGY EST uncertain behavior procedure are in of skin the results section. documented in this encounter Results Surgical Pathology Report (01/22/2022 2:57 PM EST) Component Value Ref Test Analysis Performed At [facility] Range Method Time Signature Surgical [id number] ? Location: [facility] Pathology PHIL[place]PI Report The signing pathologist has (i) examined the relevant preparation(s) for the [facility]IAL specimen(s) and (ii) rendered or confirmed the diagnosis(es) . HOSPITAL LABORATORY . ?Surgic al Pathology DIAGNOSIS Upper central back, skin shave biopsy: - ??Intradermal melanocytic nevus combined with pigmented epithelioid (blue nevus and clonal) components, abut the deep specimen edge ?(see d iscussion) Electronically signed by: ?Libertad Alfonso MD Verified: ??01/29/2022 16:42 ??Dermatopathologist Performed at: ??-[facility] [place], [place], [place] DISCUSSION In addition to the spindled pigmented melanocytes there are epithelioid melanocytes with some degree of nuclear atypia, compatible with inverted type-A/clonal nevus subtype. PRAME is negative. The lesional cells focally abut the deep tissue base. Close clinical follow up sh ould at least be considered with additional sampling/ removal if ??the lesion were to repigment or otherwise show any evidence of regrowth. ADDITIONAL STUDIES Multiple step-leveled sectio ns were reviewed. ?This case was also reviewed by an additional intradepartmental dermatopathologist for consens us diagnosis. SPECIMEN(S) SUBMITTED A - On the upper central back, skin shave biopsy (1) CLINICAL INFORMATION 0.2 cm dark brown macule with uneven pigment. Nevus R/O dysp lasia SPECIMEN PROCESSING A - Labeled/Fixative: Patient demographics, formalin. Quantity/Size: ??Single, 1.3 x 0.5 cm. Tissue Description: Non-orie nted, medina-white elliptical skin shave with a central 0.2 cm well-circumscribed purple-black macule. Sections/Processing: Inked, serially sectioned and entirely submitted in 2 imelda ettes as follows: ?A1: ??Tips ?A2: ??Body, including central macule ??shb Specimen (Source) Anatomical Collection Method Collection Time Re ceived Time Location / / Volume Laterality 01/22/2022 2:57 PM EST Mauricio Julien MD PATHOLOGY/CYTOLOGY ORDERABLE S Performing Organization Address City/[facility] [place] [address] Specimen to Pathology (01/22/2022 2:57 PM EST) Specimen Anatomical Collection Method Collection Time Receive d Time (Source) Location / / Volume Laterality AP Specimen 01/22/2022 2:57 PM 2:57 EST PM EST Narrative [facility] - 01/22/2022 2:57 PM EST Specimen requisition ordered. ??Separate Pathology report to follow Gita Marquez MD PATHOLOGY/CYTOLOGY ORDERABLE S Performing Organization Address City/[facility] [place] [address] documented in this encounter Visit Diagnoses Diagnosis Neoplasm of uncertain behavior of skin - Primary Actinic keratoses Actinic keratosis Lentigines Other dyschromia Seborrheic keratoses Multiple benign nevi Benign neoplasm of skin, site unspecifie d documented in this encounter Care Teams Military Pilot Relationship Specialty Start Date End Date Giorgi Hogue DO PCP - General Family Medicine 04/08/[address] [place] [address] documented as of this encounter
--- OUTSIDE RECORDS SUMMARY | 2022-08-01 01:14 | XMS_ITS | Encounter Summary ---
:1960 Author Organization [facility] [place] [address] Care Team Providers Name Role Phone Lianne Garica APRN Primary Care Provider Reason for Visit Reason Comments Circulatory Problem venous stasis ulcer Encounter Details Date Type Department Care Team Description 01/17/2015 Follow-Up Vascular Surgery at [facility] Ve nous stasis ulcers of both lower extremities[place] [facility] [place] of [place]; [facility] DVT (deep venous thrombosis), [place] [address] VASCULAR SURGERY [phone] [place] [address] Social History Tobacco Use Types Packs/Day Years Used Date Never Smoker Smokeless Tobacco: Never Used Alcohol Use Standard Drinks/Week Comments Yes 1.7 (1 standard drink = 0.6 oz pure alco hol) Sex Assigned at Date Recorded Not on file documented as of this encounter Last Filed Vital Signs Vital Sign Reading Time Taken Comments Blood Pressure 133/69 01/17/2015 2:56 PM EST Pulse 63 01/17/2015 2:56 PM EST Temperature - - Respiratory Rate 20 01/17/2015 2:56 PM EST Oxygen Saturation - - Inhaled Oxygen Concentration - - Weight 81.6 kg (180 lb) 01/17/2015 2:56 PM EST Height 185.4 cm (6' 1) 01/17/2015 2:56 PM EST Body Mass Index 23.75 01/17/2015 2:56 PM EST documented in this encounter Patient Instructions Patient InstructionsFilConnor acevedo MD - 01/17/2015 3:27 PM EST Call with any questions, problems, or worsening. documented in this encounter Progress Notes Connor Salazar MD - 01/17/2015 3:04 PM EST Tarik Sanchez presents to the vascular clinic in consultation from LIANNE GARCIA APRN regarding bilateral lower extremity ulcers and possible venous insufficiency. Mr Sanchez is a 54 y.o. who has a hxof RLE DVT many years ago, and is on life-long Coumadin for Protein S deficiency. He developed bilateral medial ankle ulcers R>>L in October, a particularly heavy period of activity for him at work at [email or web address] He made it through the holiday nye and then took two weeks off to do leg elevation andget the ulcers healed, with significant improvement. 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 There is no reported history of PE, thombophlebitis, bleeding, or leg trauma. 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 In the interim the left LE ulcer has healed completely and the right is nearly healed. Past medical/surgical history: Patient Active Problem List Diagnosis ??? BPH (benign prostatic hypertrophy) ??? History of cleft palate repair ??? Venous insufficiency of leg ??? DVT (deep venous thrombosis) hx bilateral LE DVT RLE 1992, recurrent 2009, on lifelong Coumadin for Protein S deficiency and recurrent thrombosis off Coumadin. ??? Protein S deficiency ??? Venous stasis ulcers of both lower extremities History Social History ??? Marital Status: Spouse Name: N/A Number of Children: N/A ??? Years of Education: N/A Occupational History ??? [employer] Social History Main Topics ??? Smoking status: Never Smoker ??? Smokeless tobacco: Never Used ??? Alcohol Use: 1.0 oz/week 2 drink(s) per week ??? Drug Use: No ??? Sexual Activity: Not on file Other Topics Concern ??? Not on file Social History Narrative Family history: includes varicose veins and LE swelling (mother). Current Outpatient Prescriptions on File Prior to Visit Medication Sig Dispense Refill ??? warfarin (COUMADIN) 10 mg Tablet Take 10 mg by mouth daily. Pt takes 15 mg on thu/thu ??? finasteride (PROSCAR) 5 mg Tablet Take 5 mg by mouth daily. ??? multivitamin (THERAGRAN) tablet ??? DOCOSAHEXANOIC ACID/EPA (FISH OIL ORAL) ??? Psblfinivah-Jmhcdhayu-Xzr C-Mn (GLUCOSAMINE 1500 COMPLEX) 500-400 mg Cap No current facility-administered medications on file prior to visit. Allergies: No Known Allergies On physical exam, the patient is pleasant and conversant. Blood pressure 133/69, pulse 63, resp. rate 20, height 185.4 cm (6' 1), weight 81.647 kg (180 lb). There are no carotid bruits. Lung mcclure are clear bilaterally. Cardiac exam reveals a regular rate and rhythm with no remarkable murmurs or gallops. Abdominal exam reveals no bruits, tenderness, or masses. Femoral pulses are palpable bilaterally. Pedal pulses are palpable bilaterally. On the right lower extremity, there are mild/moderate varicosities, with venous stasis changes and ulceration almost exclusively around the right medial malleolus. The ulcer is nearly/essentially healed (improved). On the left there are there are mild/moderate varicosities, with venous stasis changes and a now healed ulceration again almost exclusively around the medial malleolus (improved). There is no calf/pedal edema bilaterally, but this is just after removing compression stockings. Both feet are relatively warm and without evidence of emboli or tissue-threatening ischemia. Neurologic exam is focally intact. Venous duplex today: Interpretation: RIGHT: There is non-occlusive deep vein thrombus in the femoral vein from the proximal through distal thigh as well as in the popliteal vein. Findings consistent with deep venous valvular incompetence. No evidence of superficial venous valvular incompetence. The common femoral, femoral vein through the thigh, popliteal, posterior tibial and peroneal veins are incompetent. There is an incompetent regulatory manager in the distal medial ankle near the healed ulcer measuring approximately 4.2 mm in diameter (reflux >2.6 seconds). No evidence of superficial vein thrombus. Reflux in the deep system ranges from >0.6 - >3.1 seconds. LEFT: There is non-occlusive deep vein thrombus in the femoral vein from the proximal through mid thigh. Findings consistent with deep and superficial venous valvular incompetence. The femoral and popliteal veins are incompetent. The great saphenous vein is incompetent from the level of the saphenofemoral junction through the distal calf. There is an incompetent regulatory manager in the mid/distal medial calf measuring approximately 4.2 mm in diameter (reflux >2.5 seconds). No evidence of superficial vein thrombus.There is a trace amount of reflux in the small saphenous vein. No evidence of superficial vein thrombus. Reflux in the deep system ranges from >1.0 - >1.3 seconds. Reflux in the great saphenous vein is > 1.1 seconds. Imp/Plan: Tarik Sanchez is a 54 y.o. year old with bilateral R>L lower extremity venous stasis ulcers by appearance and history, causing significant symptoms that interfere with work, but now healed(L) or nearly healed (R). I explained that this is related primarily to deep venous insufficiency and some element of superficial venous insufficiency on the left, but like most patients the superficial veins are not the primary etiology. The regulatory manager vein on the left is not near the ulcer and definitely needs no treatement, and the right side is in an area of skin where I would be loathe to intervene with the ulcer now nearly healed using conservative measures, especially when it is not clear whether it will help or not. He has DVT bilaterally, not just on the right, which was a surprise to him, but it appears old/chronic. I explained that deep venous reflux is not well treated with surgery, and can only be treated with compression stockings and elevation. He is already wearing compression stockings dutifully, and elevating his legs when he gets home from work, and getting good results. He understands there will still be a requirement for long-term therapy with custom compression stockingsand leg elevation even after complete healing. Hopefully he can make it the 3 years to snf, at which point he won't have so much trouble with leg elevation. Follow-up will be on a prn basis. After discussion he seems to understand all of this, and will contact us if the ulcers start to worsen again. 14 minutes of this 16 minute visit were spent in face- face counseling about the aforementioned issues. Connor Salazar MD documented in this encounter Plan of Treatment Not on filedocumented as of this encounter Visit Diagnoses Diagnosis Venous stasis ulcers of both lower extre mities Venous insufficiency of leg Unspecified venous (peripheral) insuffic iency DVT (deep venous thrombosis), bilateral documented in this encounter Care Teams Associate Professor Of Engineering Relationship Specialty Start Date End Date Lianne Garcia, BODYBUILDER PCP - General 12/14/14 04/07/17 documented as of this encounter
--- OUTSIDE RECORDS SUMMARY | 2022-08-01 01:14 | XMS_ITS | Clinical Summary ---
:1960 Author Organization [place] [address] Care Team Providers Name Role Phone Mykel Giorgi SERNA Primary Care Provider Allergies Active Allergy Reactions Severity Noted Date Comments Pollen Extracts 04/08/2017 Medications Medication Sig Dispensed Refills Start Date End Date Status multivitamin 0 06/29/2009 Active (THERAGRAN) tablet DOCOSAHEXANOIC ACID/EPA 0 06/29/2009 Active (FISH OIL ORAL) Vjjlozbpayv-Dhfdazyfy-O 0 06/29/2009 Active it C-Mn (GLUCOSAMINE 1500 COMPLEX) 500-400 mg Cap warfarin (COUMADIN) 10 Take 10 mg by 0 Active mg Tablet mouth daily. Pt takes 15 mg on thu/thu finasteride (PROSCAR) 5 Take 5 mg by 0 Active mg Tablet mouth daily. triamcinolone (KENALOG) apply topically 0 02/03/2017 Active 0.1 % Cream twice a day if needed TO SCALP AND RASH fluorouraciL (EFUDEX) 5 Apply a thin 40 g 0 01/22/2022 Active % Cream layer to affected areas on the scalp twice daily (morning and night) as tolerated for 3 weeks. Active Problems Problem Noted Date BPH (benign prostatic hypertrophy) 12/15/2014 History of cleft palate repair 12/15/2014 Venous insufficiency of leg 12/14/2014 DVT (deep venous thrombosis) hx bilateral LE 5 Overview: DVT RLE 1992, recurrent 2009, on lifelon g Coumadin for Protein S deficiency and recurrent thrombosis off Coumadin. Protein S deficiency 12/14/2014 Venous stasis ulcers of both lower extremities 015 Immunizations Name Administration Dates Next Due Td, adult 04/27/2006 Family History Medical History Relation Comments Coronary Artery Disease Father Relation Status Comments Father Social History Tobacco Use Types Packs/Day Years Used Date Never Smoker Smokeless Tobacco: Never Used Alcohol Use Standard Drinks/Week Comments Yes 1.7 (1 standard drink = 0.6 oz pure alco hol) Sex Assigned at Date Recorded Not on file Last Filed Vital Signs Vital Sign Reading [...] Mass Index 23.75 01/17/2015 2:56 PM EST Plan of Treatment Health Maintenance Due Date Last Done Comments Covid-19 Vaccine (#1) 1966 HIV screen 1979 Hepatitis C Screening 1979 Lipid Screening 1979 Tdap adult 1980 Colonoscopy 2006 Zoster vaccine (1 of 2) 2011 Tetanus vaccine 04/27/2016 04/27/2006 Advance Directive 2016 Influenza (Flu) vaccine (1 of 1 - Influenza standard 07/24/2022 series) Insurance Payer Benefit Plan / Subscriber ID Effective Dates Phone Addre ss Type Group CIGNA CIGNA OPEN [id number] 2005-Present [phone] [id number] [place] [address] Care Teams Singe Winder Relationship Specialty Start Date End Date Giorgi Hogue DO PCP - General Family Medicine 04/08/[address] [place], [place] [id number]
--- OUTSIDE RECORDS SUMMARY | 2022-08-01 01:14 | XMS_ITS | Encounter Summary ---
:1960 Author Organization [facility] [address] Care Team Providers Name Role Phone Giorgi Hogue DO Primary Care Provider Encounter Details Date Type Department Care Team Description 04/24/2017 Telephone Dermatology at [facility] Verónica Friedman MD [address] [facility] [place] [address] [facility] [phone] [place], [place] [address] (Wo rk) Social History Tobacco Use Types Packs/Day Years Used Date Never Smoker Smokeless Tobacco: Never Used Alcohol Use Standard Drinks/Week Comments Yes 1.7 (1 standard drink = 0.6 oz pure alco hol) Sex Assigned at Date Recorded Not on file documented as of this encounter Miscellaneous Notes Telephone Encounter - Verónica Friedman MD - 04/27/2017 9:22 AM EDT I returned this phone call. Pt didn't leave a new voicemail since the last time we spoke. He is all set. While on the phone we discussed his plan. He is going to stop the med tomorrow. There's some brown color and peeling which I assured him is normal. We discussed using Vaseline for discomfort. Telephone Encounter - Princess Connelly - 04/24/2017 9:01 AM EDT Pt left a VM stating he had questions about the cream Dr. Friedman prescribed at his 04/08/17 appointment. He can be reached back at [phone]. documented in this encounter Plan of Treatment Not on filedocumented as of this encounter Visit Diagnoses Not on filedocumented in this encounter Care Teams Ophthalmic Surgical Assistant Relationship Specialty Start Date End Date Giorgi Hogue DO PCP - General Family Medicine 04/08/[address] [place] [address] [address] [place] [address] documented as of this encounter
--- OUTSIDE RECORDS SUMMARY | 2022-08-01 01:14 | XMS_ITS | Encounter Summary ---
:1960 Author Organization [facility] [place] [address] Care Team Providers Name Role Phone Lianne Darnell APRN Primary Care Provider Encounter Details Date Type Department Care Team Description 01/17/2015 Ancillary Vascular Surgery Geronimo Venous sheela is ulcers of both lower extremities; Appointment at [facility] [place] [place] Wilder Venous insufficiency of leg; [facility] DVT (deep venous thrombosis), [place] [id number] Social History Tobacco Use Types Packs/Day Years Used Date Never Smoker Smokeless Tobacco: Never Used Alcohol Use Standard Drinks/Week Comments Yes 1.7 (1 standard drink = 0.6 oz pure alco hol) Sex Assigned at Date Recorded Not on file documented as of this encounter Plan of Treatment Not on filedocumented as of this encounter Procedures Procedure Name Priority Date/Time Associated Diagnosis Comme nts VENOUS VALVULAR Routine 01/17/2015 12:45 Venous stasis ulcers Results for this INCOMP, BILAT LEGS PM EST of both lower procedur e are in extremities the results Venous insufficiency section . of leg DVT (deep venous thrombosis), right documented in this encounter Results Venous Valvular Incomp, Bilat Legs (01/17/2015 12:45 PM EST) Component Value Ref Test Analysis Performed At [facility] Range Method Time Signature VB Text VASCUBASE Report Department: Vascular Surgery Lab Patient: [id number] (TARIK EATON) CPT Code: 26485 ICD-9: 459.81; 454.1 Referring Physician: VIPIN BRYAN [...] are incompetent. There is an inc ompetent foreign languages department chair in the distal medial ankle near the [...] distal calf. There is an incompeten t foreign languages department chair in the mid/distal medial calf measuring approximately [...] right documented in this encounter Care Teams Structural Iron Erector Relationship Specialty Start Date End Date Lianne Darnell APRN PCP - General 12/14/14 04/07/17 documented as of this encounter
--- OUTSIDE RECORDS SUMMARY | 2022-08-01 01:14 | XMS_ITS | Encounter Summary ---
:1960 Author Organization [facility] [address] Care Team Providers Name Role Phone Giorgi Hogue DO Primary Care Provider Reason for Visit Reason Onset Date Comments Results 04/09/2017 Encounter Details Date Type Department Care Team Description 04/09/2017 Telephone Dermatology at [facility] Verónica Friedman MD Results [address] [facility] [place] [address] [facility] [phone] [place], [place] [address] (Wo rk) Social History Tobacco Use Types Packs/Day Years Used Date Never Smoker Smokeless Tobacco: Never Used Alcohol Use Standard Drinks/Week Comments Yes 1.7 (1 standard drink = 0.6 oz pure alco hol) Sex Assigned at Date Recorded Not on file documented as of this encounter Miscellaneous Notes Telephone Encounter - Verónica Friedman MD - 04/09/2017 7:43 PM EDT I called and spoke with patient about biopsy results, as below. Benign finding; no further intervention needed at this site, based on this result. Skin, left lateral lower leg, shave removal: - LENTIGINOUS JUNCTIONAL NEVUS, not identified at the histologic edges in planes of ??section examined We reviewed sun protection with Efudex use. He appreciated the call. documented in this encounter Plan of Treatment Not on filedocumented as of this encounter Visit Diagnoses Not on filedocumented in this encounter Care Teams Manufacturing Operations Manager Relationship Specialty Start Date End Date Giorgi Hogue DO PCP - General Family Medicine 04/08/[address] [place] [address] documented as of this encounter
--- OUTSIDE RECORDS SUMMARY | 2022-08-01 01:15 | XMS_ITS | Encounter Summary ---
:1960 Author Organization [facility] Address [address] [place] [address] Care Team Providers Name Role Phone Unknown, Provider Primary Care Provider Encounter Details Date Type Department Care Team Description 03/22/2020 Lab Requisition [facility] Outr Resulting Lab, Pathology & Laboratory Provider [facility] [address] [place] [address] Social History Tobacco Use Types Packs/Day Years Used Date Never Assessed Sex Assigned at Date Recorded Not on file documented as of this encounter Plan of Treatment Not on filedocumented as of this encounter Procedures Procedure Name Priority Date/Time Associated Comments Diagnosis PSA TOTAL, Routine 03/22/2020 13:09 Results for this DIAGNOSTIC EDT procedure are i n the results section. documented in this encounter Results PSA TOTAL, DIAGNOSTIC (03/22/2020 13:09 EDT) Pathologist Sig nature PSA 0.5 0.0 - 3.5 ng/mL [facility] Specimen Blood - Venous blood (substance) Narrative [facility] - 03/23/2020 9:15 EDT NOTE: Serum PSA concentration should not be in terpreted as absolute evidence for the presence or absence of malignant disease. Assayed on Siemens ADVIA Centaur XPT usi ng chemiluminescent technology.??Values obtained by using different assay methods cannot be used interchangeably. Performing Organization Address City/State/ZIP Code Phon e Number [facility] [address] [place] [address] SERVICES documented in this encounter Visit Diagnoses Not on filedocumented in this encounter Care Teams Product Safety Technical Assistant Relationship Specialty Start Date End Date Unknown, Provider, PCP - General 05/19/11 documented as of this encounter
--- OUTSIDE RECORDS SUMMARY | 2022-08-01 01:15 | XMS_ITS | Clinical Summary ---
:1960 Author Organization [facility] Address [address] [place] [address] Care Team Providers Name Role Phone Unknown, Provider Primary Care Provider Encounters Date Type Specialty Care Team Description 05/01/2022 Lab Requisition Clinical Laboratory Outr Resulting Lab , Provider from Last 3 Months Social History Tobacco Use Types Packs/Day Years Used Date Never Assessed Sex Assigned at Date Recorded Not on file Plan of Treatment Health Maintenance Due Date Last Done Comments Hepatitis C Screen 1960 COVID-19 Vaccine (1) 1965 Procedures Procedure Name Priority Date/Time Associated Comments Diagnosis PSA TOTAL, Routine 05/01/2022 9:08 EDT Results for this DIAGNOSTIC procedure are i n the results section. from Last 3 Months Results PSA TOTAL, DIAGNOSTIC (05/01/2022 9:08 EDT) Pathologist Sig nature PSA 0.6 <=4.5 ng/mL [facility] Specimen Blood - Venous blood (substance) Narrative [facility] - 05/01/2022 18:17 EDT NOTE: Serum PSA concentration should not be in terpreted as absolute evidence for the presence or absence of malignant disease. Assayed on Siemens ADVIA Centaur XPT usi ng chemiluminescent technology.??Values obtained by using different assay methods cannot be used interchangeably. Performing Organization Address City/State/ZIP Code Phon e Number [facility] [address] [place] [address] SERVICES from Last 3 Months Care Teams Water Pump Assembler Relationship Specialty Start Date End Date Unknown, Provider, PCP - General 05/19/11
--- OUTSIDE RECORDS SUMMARY | 2022-08-01 01:15 | XMS_ITS | Encounter Summary ---
:1960 Author Organization [facility] Address [address] [place] [address] Care Team Providers Name Role Phone Unknown, Provider Primary Care Provider Encounter Details Date Type Department Care Team Description 05/19/2011 Results Only [facility] Rosalio Yang MD Laboratory Services - [address] [place] [address] [address] [facility] [place] [address] [phone] Social History Tobacco Use Types Packs/Day Years Used Date Never Assessed Sex Assigned at Date Recorded Not on file documented as of this encounter Plan of Treatment Not on filedocumented as of this encounter Procedures Procedure Name Priority Date/Time Associated Diagnosis Comme [facility] SURGICAL PATHOLOGY Routine 05/19/2011 0:00 EDT Re sults for this procedure are i n the results section. documented in this encounter Results SURGICAL PATHOLOGY (05/19/2011 0:00 EDT) Pathology Report: SURGICAL PATHOLOGY REPORT ? CAROLINA DOOLEY Reports generated via [employer]rest interface contain original data; ? LAB however they are lacking the format of the original report. ? Caution should be taken when reading/interpreting unformatted reports. ? Name: ? WOOD, TARIK D ? Accession #: ? [id number] ? : ? 1960 (Age: 50) ??M ? Collec t Date: ? 05/19/2011 ? Location: ? [facility] ? R eceive Date: ? 05/19/2011 ? Provider: FRANTZ YANG MD ? Copy to: LYNDA F ANURADHA DO ? Final Pathologic Diagnosis: ? Colon, descending, po lyp, biopsy: ? - Polypoid fragment of colon ic mucosa with focal surface epithelial hyperplastic changes. ? Comment: ? Deeper levels have be en examined. ??(Dr. Tooke)/ljn ? Document reviewed and electr onically signed by: ? Thomas Ackerman MD ? Report ??Date: 05/21/2011 16 :47 ? By the signature above, the attending physician certifies that he/she has ? personally conducted a gross and/or microscopic examination of the described ? specimens and rendered or co nfirmed the above diagnosis. ? Specimen(s) Received: ? Descending colon poly p ? Clinical History: ? Screening ? Gross Description: ? Received in formalin labelled Tarik Sanchez and #1 ??descending colon ? polyp is a light medina biopsy measuring 0.4 x 0.2 x 0.2 cm. ??The specimen is ? submitted intact in one imelda ette. ??(Edmundo Ahumada)/mms ? End of Report ? Specimen Performing Organization Address City/State/[facility] Code Phon e Number [facility] [address] [place] [address] SERVICES [facility] [address] [place] [address] documented in this encounter Visit Diagnoses Not on filedocumented in this encounter Care Teams Bag Washer Relationship Specialty Start Date End Date Unknown, Provider, PCP - General 05/19/11 documented as of this encounter
--- OUTSIDE RECORDS SUMMARY | 2022-08-01 01:15 | XMS_ITS | Encounter Summary ---
:1960 Author Organization [facility] Address [address] [place] [address] Care Team Providers Name Role Phone Unknown, Provider Primary Care Provider Encounter Details Date Type Department Care Team Description 05/01/2022 Lab Requisition [facility] Outr Resulting Lab, Pathology & Laboratory Provider [facility] [address] [place] [address] Social History Tobacco Use Types Packs/Day Years [...] in this encounter Results PSA TOTAL, DIAGNOSTIC (05/01/2022 9:08 EDT) Pathologist Sig nature PSA 0.6 <=4.5 ng/mL [facility] Specimen Blood - Venous blood (substance) Narrative [facility] - 05/01/2022 18:17 EDT NOTE: Serum PSA concentration should not be in terpreted as absolute evidence for the presence or absence of malignant disease. Assayed on Siemens ADVIA Centaur XPT usi ng chemiluminescent technology.??Values obtained by using different assay methods cannot be used interchangeably. Performing Organization Address City/State/ZIP Code Phon e Number [facility] [address] [place] [address] SERVICES documented in this encounter Visit Diagnoses Not on filedocumented in this encounter Care Teams Steeple Jack Relationship Specialty Start Date End Date Unknown, Provider, PCP - General 05/19/11 documented as of this encounter
[2022-08-01 12:24] LABS: HCT 46.8 % (40.0-50.0); HGB 15.7 g/dL (13.5-17.5); MCH 32.1 pg (27.0-33.0); MCHC 33.5 % (32.0-36.0); MCV 96 fL (80-95); MPV 10.6 fL (8.0-11.0); Platelet Count 205 10^3/uL (130-400); RBC 4.89 10^6/uL (4.36-5.78); RDW 12.7 % (11.8-14.1); WBC 5.45 10^3/uL (4.4-10.8)
[2022-08-01 12:35] LABS: INR 1.9 (0.9-1.1); Prothrombin Time 18.8 sec (9.3-11.0)
== END 2022-08-01 01:13 | disposition home or self-care (01) ==
LOC: LOS 01:12
PROVIDERS: PCP Nurse Practitioner; Visit Provider Emergency Medicine
DX: R53.83 Other fatigue (principal); D68.59 Other primary thrombophilia; I74.3 Embolism and thrombosis of arteries of the lower extremities
CPT/HCPCS: 36415; 85027; 85610

== ENCOUNTER 2022-08-29 01:20 | Outpatient (CLI) | payer OTHER, SELFPAY ==
[2022-08-29 12:37] LABS: INR 2.9 (0.9-1.1); Prothrombin Time 27.3 sec (9.3-11.0)
== END 2022-08-29 01:21 | disposition home or self-care (01) ==
LOC: LOS 01:20
PROVIDERS: Family Medicine; PCP Nurse Practitioner; Visit Provider Emergency Medicine
DX: Z79.01 Long term (current) use of anticoagulants (principal); I82.221 Chronic embolism and thrombosis of inferior vena cava
CPT/HCPCS: 36415; 85610

== ENCOUNTER 2022-09-15 08:42 | Outpatient (CLI) | payer OTHER, SELFPAY ==
[2022-09-15 12:30] LABS: INR 2.8 (0.9-1.1); Prothrombin Time 26.4 sec (9.3-11.0)
== END 2022-09-15 08:43 | disposition home or self-care (01) ==
LOC: LOS 08:43
PROVIDERS: PCP Nurse Practitioner; Visit Provider Family Medicine
DX: Z79.01 Long term (current) use of anticoagulants (principal); I74.3 Embolism and thrombosis of arteries of the lower extremities
CPT/HCPCS: 36415; 85610

== ENCOUNTER 2022-10-09 14:55 | Outpatient (CLI) | payer OTHER, SELFPAY ==
[2022-10-09 14:52] LABS: INR 3.7 (0.9-1.1); Prothrombin Time 33.9 sec (9.3-11.0)
== END 2022-10-09 14:56 | disposition home or self-care (01) ==
LOC: LBO 14:58
PROVIDERS: PCP Nurse Practitioner Family; Visit Provider Family Medicine
DX: Z79.01 Long term (current) use of anticoagulants (principal); I82.221 Chronic embolism and thrombosis of inferior vena cava
CPT/HCPCS: 36415; 85610

== ENCOUNTER 2022-10-15 03:22 | Outpatient (CLI) | payer OTHER, SELFPAY ==
[2022-10-15 12:28] LABS: INR 3.1 (0.9-1.1); Prothrombin Time 28.7 sec (9.3-11.0)
== END 2022-10-15 03:23 | disposition home or self-care (01) ==
LOC: LOS 03:22
PROVIDERS: PCP Nurse Practitioner Family; Visit Provider Family Medicine
DX: I87.2 Venous insufficiency (chronic) (peripheral) (principal); I74.3 Embolism and thrombosis of arteries of the lower extremities; Z79.01 Long term (current) use of anticoagulants
CPT/HCPCS: 36415; 85610

== ENCOUNTER 2022-10-24 02:00 | Outpatient (CLI) | payer OTHER, SELFPAY ==
[2022-10-24 12:46] LABS: INR 2.6 (0.9-1.1); Prothrombin Time 24.7 sec (9.3-11.0)
== END 2022-10-24 02:01 | disposition home or self-care (01) ==
LOC: LOS 02:01
PROVIDERS: PCP Nurse Practitioner Family; Visit Provider Family Medicine
DX: Z79.01 Long term (current) use of anticoagulants (principal)
CPT/HCPCS: 36415; 85610

== ENCOUNTER 2022-10-31 01:19 | Outpatient (CLI) | payer OTHER, SELFPAY ==
[2022-10-31 13:06] LABS: INR 3.3 (0.9-1.1); Prothrombin Time 30.7 sec (9.3-11.0)
== END 2022-10-31 01:20 | disposition home or self-care (01) ==
LOC: LOS 01:19
PROVIDERS: PCP Nurse Practitioner Family; Visit Provider Family Medicine
DX: D68.59 Other primary thrombophilia (principal)
CPT/HCPCS: 36415; 85610

== ENCOUNTER 2022-11-07 01:11 | Outpatient (CLI) | payer OTHER, SELFPAY ==
[2022-11-07 10:36] LABS: INR 3.8 (0.9-1.1); Prothrombin Time 34.8 sec (9.3-11.0)
== END 2022-11-07 01:12 | disposition home or self-care (01) ==
LOC: LOS 01:12
PROVIDERS: PCP Nurse Practitioner Family; Visit Provider Family Medicine
DX: D68.59 Other primary thrombophilia (principal)
CPT/HCPCS: 36415; 85610

== ENCOUNTER 2022-11-14 00:58 | Outpatient (CLI) | payer OTHER, SELFPAY ==
[2022-11-14 12:32] LABS: INR 3.4 (0.9-1.1); Prothrombin Time 31.8 sec (9.3-11.0)
== END 2022-11-14 00:59 | disposition home or self-care (01) ==
LOC: LOS 00:58
PROVIDERS: PCP Nurse Practitioner Family; Visit Provider Family Medicine
DX: I87.8 Other specified disorders of veins (principal); D68.59 Other primary thrombophilia; Z79.01 Long term (current) use of anticoagulants
CPT/HCPCS: 36415; 85610

== ENCOUNTER 2022-12-04 04:05 | Outpatient (CLI) | payer OTHER, SELFPAY ==
[2022-12-04 12:46] LABS: INR 2.8 (0.9-1.1); Prothrombin Time 26.8 sec (9.3-11.0)
== END 2022-12-04 04:06 | disposition home or self-care (01) ==
LOC: LOS 04:05
PROVIDERS: PCP Nurse Practitioner Family; Visit Provider Family Medicine
DX: D68.59 Other primary thrombophilia (principal)
CPT/HCPCS: 36415; 85610

== ENCOUNTER 2022-12-12 01:15 | Outpatient (CLI) | payer OTHER, SELFPAY ==
[2022-12-12 12:28] LABS: INR 3.5 (0.9-1.1); Prothrombin Time 32.9 sec (9.3-11.0)
== END 2022-12-12 01:16 | disposition home or self-care (01) ==
PROVIDERS: PCP Nurse Practitioner Family; Visit Provider Emergency Medicine
DX: D68.59 Other primary thrombophilia (principal)
CPT/HCPCS: 36415; 85610

== ENCOUNTER 2022-12-18 02:26 | Outpatient (CLI) | payer OTHER, SELFPAY ==
[2022-12-18 12:45] LABS: INR 2.9 (0.9-1.1); Prothrombin Time 27.3 sec (9.3-11.0)
== END 2022-12-18 02:27 | disposition home or self-care (01) ==
LOC: LOS 02:26
PROVIDERS: PCP Nurse Practitioner Family; Visit Provider Family Medicine
DX: D68.59 Other primary thrombophilia (principal)
CPT/HCPCS: 36415; 85610

== ENCOUNTER 2022-12-25 03:24 | Outpatient (CLI) | payer OTHER, SELFPAY ==
[2022-12-25 12:59] LABS: INR 1.9 (0.9-1.1); Prothrombin Time 18.1 sec (9.3-11.0)
== END 2022-12-25 03:25 | disposition home or self-care (01) ==
LOC: LOS 03:24
PROVIDERS: PCP Nurse Practitioner Family; Visit Provider Family Medicine
DX: Z79.01 Long term (current) use of anticoagulants (principal); I74.3 Embolism and thrombosis of arteries of the lower extremities
CPT/HCPCS: 36415; 85610

== ENCOUNTER 2023-01-01 01:51 | Outpatient (CLI) | payer OTHER, SELFPAY ==
[2023-01-01 12:40] LABS: INR 2.6 (0.9-1.1); Prothrombin Time 26.1 sec (9.3-11.0)
== END 2023-01-01 01:52 | disposition home or self-care (01) ==
LOC: LOS 01:51
PROVIDERS: PCP Nurse Practitioner Family; Visit Provider Family Medicine
DX: Z79.01 Long term (current) use of anticoagulants (principal); I74.3 Embolism and thrombosis of arteries of the lower extremities
CPT/HCPCS: 36415; 85610

== ENCOUNTER 2023-01-16 01:49 | Outpatient (CLI) | payer OTHER, SELFPAY ==
[2023-01-16 13:34] LABS: Prothrombin Time 30.5 sec (9.3-11.0)
== END 2023-01-16 01:50 | disposition home or self-care (01) ==
LOC: LOS 01:49
PROVIDERS: PCP Nurse Practitioner Family; Visit Provider Family Medicine
DX: I74.3 Embolism and thrombosis of arteries of the lower extremities; I87.2 Venous insufficiency (chronic) (peripheral); Z79.01 Long term (current) use of anticoagulants
CPT/HCPCS: 36415; 85610

== ENCOUNTER 2023-01-30 01:30 | Outpatient (CLI) | payer OTHER, SELFPAY ==
[2023-01-30 12:38] LABS: INR 1.3 (0.9-1.1); Prothrombin Time 12.9 sec (9.3-11.0)
== END 2023-01-30 01:31 | disposition home or self-care (01) ==
PROVIDERS: PCP Nurse Practitioner Family; Visit Provider Emergency Medicine
DX: D68.59 Other primary thrombophilia (principal)
CPT/HCPCS: 36415; 85610

== ENCOUNTER 2023-02-02 03:21 | Outpatient (CLI) | payer OTHER, SELFPAY ==
[2023-02-02 12:25] LABS: INR 2.7 (0.9-1.1); Prothrombin Time 27.5 sec (9.3-11.0)
== END 2023-02-02 03:22 | disposition home or self-care (01) ==
LOC: LOS 03:21
PROVIDERS: PCP Nurse Practitioner Family; Visit Provider Family Medicine
DX: I87.2 Venous insufficiency (chronic) (peripheral) (principal); Z79.01 Long term (current) use of anticoagulants
CPT/HCPCS: 36415; 85610

== ENCOUNTER 2023-02-09 04:03 | Outpatient (CLI) | payer OTHER, SELFPAY ==
[2023-02-09 12:40] LABS: INR 2.3 (0.9-1.1); Prothrombin Time 23.7 sec (9.3-11.0)
== END 2023-02-09 04:04 | disposition home or self-care (01) ==
LOC: LOS 04:03
PROVIDERS: Emergency Medicine; PCP Nurse Practitioner Family; Visit Provider Family Medicine
DX: D68.59 Other primary thrombophilia (principal)
CPT/HCPCS: 36415; 85610

== ENCOUNTER 2023-02-20 01:39 | Outpatient (CLI) | payer OTHER, SELFPAY ==
[2023-02-20 10:53] LABS: INR 2.9 (0.9-1.1); Prothrombin Time 29.2 sec (9.3-11.0)
== END 2023-02-20 01:40 | disposition home or self-care (01) ==
LOC: LOS 01:39
PROVIDERS: PCP Nurse Practitioner Family; Visit Provider Nurse Practitioner Family
DX: I74.3 Embolism and thrombosis of arteries of the lower extremities (principal); Z79.01 Long term (current) use of anticoagulants
CPT/HCPCS: 36415; 85610

== ENCOUNTER 2023-03-12 03:32 | Outpatient (CLI) | payer OTHER, SELFPAY ==
[2023-03-12 12:54] LABS: INR 2.3 (0.9-1.1); Prothrombin Time 23.2 sec (9.3-11.0)
[2023-03-13 09:38] LABS: PSA, Diagnostic 0.8 ng/mL (<=4.5)
== END 2023-03-12 03:33 | disposition home or self-care (01) ==
LOC: LOS 03:32
PROVIDERS: Urology; PCP Nurse Practitioner Family; Visit Provider Family Medicine
DX: I87.2 Venous insufficiency (chronic) (peripheral) (principal); D68.59 Other primary thrombophilia; Z79.01 Long term (current) use of anticoagulants; N40.0 Benign prostatic hyperplasia without lower urinary tract symptoms
CPT/HCPCS: 36415; 84153; 85610

== ENCOUNTER 2023-04-15 05:39 | Outpatient (CLI) | payer OTHER, SELFPAY ==
[2023-04-15 12:32] LABS: INR 2.6 (0.9-1.1); Prothrombin Time 26.3 sec (9.3-11.0)
== END 2023-04-15 05:40 | disposition home or self-care (01) ==
LOC: LOS 05:39
PROVIDERS: PCP Nurse Practitioner Family; Visit Provider Family Medicine
DX: Z79.01 Long term (current) use of anticoagulants (principal); I87.2 Venous insufficiency (chronic) (peripheral); D68.59 Other primary thrombophilia
CPT/HCPCS: 36415; 85610

== ENCOUNTER 2023-05-19 09:33 | Outpatient (CLI) | payer OTHER, SELFPAY ==
[2023-05-19 13:39] LABS: INR 2.8 (0.9-1.1); Prothrombin Time 28.2 sec (9.3-11.0)
== END 2023-05-19 09:34 | disposition home or self-care (01) ==
LOC: LOS 09:33
PROVIDERS: PCP Nurse Practitioner Family; Visit Provider Family Medicine
DX: D68.59 Other primary thrombophilia
CPT/HCPCS: 36415; 85610

== ENCOUNTER 2023-06-25 04:00 | Outpatient (CLI) | payer OTHER, SELFPAY ==
[2023-06-25 14:31] LABS: Prothrombin Time 30.4 sec (9.3-11.0)
== END 2023-06-25 04:01 | disposition home or self-care (01) ==
LOC: LOS 04:00
PROVIDERS: PCP Nurse Practitioner Family; Visit Provider Family Medicine
DX: D68.59 Other primary thrombophilia (principal); I87.2 Venous insufficiency (chronic) (peripheral); Z79.01 Long term (current) use of anticoagulants
CPT/HCPCS: 36415; 85610

== ENCOUNTER 2023-08-10 04:25 | Outpatient (CLI) | payer OTHER, SELFPAY ==
[2023-08-10 12:24] LABS: INR 3.2 (0.9-1.1); Prothrombin Time 31.9 sec (9.3-11.0)
== END 2023-08-10 04:26 | disposition home or self-care (01) ==
LOC: LOS 04:25
PROVIDERS: PCP Nurse Practitioner Family; Visit Provider Family Medicine
DX: D68.59 Other primary thrombophilia (principal); Z79.01 Long term (current) use of anticoagulants; I82.593 Chronic embolism and thrombosis of other specified deep vein of lower extremity, bilateral
CPT/HCPCS: 36415; 85610

== ENCOUNTER 2023-08-20 05:10 | Outpatient (CLI) | payer OTHER, SELFPAY ==
[2023-08-20 12:37] LABS: Prothrombin Time 30.4 sec (9.3-11.0)
== END 2023-08-20 05:11 | disposition home or self-care (01) ==
LOC: LOS 05:10
PROVIDERS: Family Medicine; PCP Nurse Practitioner Family; Visit Provider Nurse Practitioner Family
DX: D68.59 Other primary thrombophilia (principal); I82.593 Chronic embolism and thrombosis of other specified deep vein of lower extremity, bilateral; Z79.01 Long term (current) use of anticoagulants
CPT/HCPCS: 36415; 85610

== ENCOUNTER → 2023-09-09 03:26 | Outpatient (CLI) | payer OTHER, SELFPAY ==
--- NOTE | 2023-09-09 07:54 | DI.RAD_ITS ---
Exam(s) XR FOOT RT COMPLETE EXAM: XR FOOT RT COMPLETE CLINICAL HISTORY: rt foot pain,m79.671. TECHNIQUE: 2D digital imaging was performed of the right foot. Three images were obtained. AP, obl ique and lateral views were obtained. COMPARISON: No exams were available for comparison FINDINGS: BONES: No acute fracture is present. No bony destructive lesion is seen. The looks to be hammertoe de formities of the 2nd and 4th toes. JOINTS: No dislocation present. The joint spaces are well maintained. SOFT TISSUE: Normal. IMPRESSION: Hammertoe deformities. DATA REPOSITORY: RADIATION DOSE DELIVERED:
--- NOTE | 2023-09-09 07:54 | DI.RAD_ITS ---
Exam(s) XR FOOT LT COMPLETE EXAM: XR FOOT LT COMPLETE CLINICAL HISTORY: Painful lt foot bunion,m79.672,m21.612. TECHNIQUE: 2D digital imaging was performed of the left foot. Three images were obtained. AP, obli que and lateral views were obtained. COMPARISON: No exams were available for comparison FINDINGS: BONES: No acute fracture is present. No bony destructive lesion is seen. JOINTS: No dislocation present. There are mild degenerative changes of the foot characterized by join t space narrowing and osteophytes. The findings are most marked at the 1st MTP joint. SOFT TISSUE: Normal. IMPRESSION: Mild degenerative changes of the left foot. DATA REPOSITORY: RADIATION DOSE DELIVERED:
== END ==
PROVIDERS: PCP Nurse Practitioner Family; Visit Provider Podiatrist
DX: M79.671 Pain in right foot (principal); M21.612 Bunion of left foot; M79.672 Pain in left foot
CPT/HCPCS: 73630

== ENCOUNTER 2023-09-09 04:02 | Outpatient (CLI) | payer OTHER, SELFPAY ==
[2023-09-09 12:25] LABS: INR 3.4 (0.9-1.1); Prothrombin Time 30.7 sec (9.1-11.1)
[2023-09-09 12:27] LABS: ALT 49 U/L (16-63); AST 32 U/L (15-37); Albumin 3.6 g/dL (3.4-5.0); Alkaline Phosphatase 56 U/L (46-116); Anion Gap 5.8 mmol/L (3-11); BUN 19 mg/dL (7-18); Bilirubin, Total 0.3 mg/dL (0.2-1.0); CO2 28.2 mmol/L (21.0-32.0); CREATININE 0.9 mg/dL (0.70-1.30); Calcium 9.1 mg/dL (8.5-10.1); Calculated LDL 125 mg/dL (<100); Chloride 102 mmol/L (98-107); Cholesterol 193 mg/dL (<200); Estimated GFR 96.57 (mL/min/1.73m2); Glucose 90 mg/dL (74-106); HDL Cholesterol 53 mg/dL (40-60); Potassium 4.4 mmol/L (3.5-5.1); Sodium 136 mmol/L (136-145); Total Protein 7.5 g/dL (6.4-8.2); Triglyceride 76 mg/dL (<150)
[2023-09-10 12:12] LABS: HIV-1/2 Ag & Ab Screen Negative (Negative)
[2023-09-10 12:18] LABS: Hepatitis C Ab w Rflx HCV PCR Negative (Negative)
== END 2023-09-09 04:03 | disposition home or self-care (01) ==
LOC: LOS 04:02
PROVIDERS: PCP Nurse Practitioner Family; Visit Provider Nurse Practitioner Family
DX: Z13.220 Encounter for screening for lipoid disorders (principal); Z11.4 Encounter for screening for human immunodeficiency virus [HIV]; Z11.59 Encounter for screening for other viral diseases
CPT/HCPCS: 36415; 80053; 80061; 86803; 87389; 85610

== ENCOUNTER 2023-09-18 02:04 | Outpatient (CLI) | payer OTHER, SELFPAY ==
[2023-09-18 12:21] LABS: INR 3.9 (0.9-1.1); Prothrombin Time 34.4 sec (9.1-11.1)
== END 2023-09-18 02:05 | disposition home or self-care (01) ==
LOC: LOS 02:05
PROVIDERS: PCP Nurse Practitioner Family; Visit Provider Nurse Practitioner Family
DX: Z79.01 Long term (current) use of anticoagulants (principal); D68.59 Other primary thrombophilia
CPT/HCPCS: 36415; 85610

== ENCOUNTER 2023-09-24 03:09 | Outpatient (CLI) | payer OTHER, SELFPAY ==
[2023-09-24 12:33] LABS: INR 2.7 (0.9-1.1); Prothrombin Time 24.5 sec (9.1-11.1)
== END 2023-09-24 03:10 | disposition home or self-care (01) ==
PROVIDERS: PCP Nurse Practitioner Family; Visit Provider Nurse Practitioner Family
DX: D68.59 Other primary thrombophilia (principal); Z79.01 Long term (current) use of anticoagulants
CPT/HCPCS: 36415; 85610

== ENCOUNTER 2023-10-02 04:00 | Outpatient (CLI) | payer OTHER, SELFPAY ==
[2023-10-02 12:25] LABS: INR 3.8 (0.9-1.1); Prothrombin Time 33.9 sec (9.1-11.1)
== END 2023-10-02 04:01 | disposition home or self-care (01) ==
LOC: LOS 04:00
PROVIDERS: PCP Nurse Practitioner Family; Visit Provider Nurse Practitioner Family
DX: D68.59 Other primary thrombophilia (principal); Z79.01 Long term (current) use of anticoagulants
CPT/HCPCS: 36415; 85610

== ENCOUNTER 2023-10-09 01:56 | Outpatient (CLI) | payer OTHER, SELFPAY ==
[2023-10-09 12:22] LABS: INR 1.9 (0.9-1.1)
== END 2023-10-09 01:57 | disposition home or self-care (01) ==
LOC: LOS 01:56
PROVIDERS: PCP Nurse Practitioner Family; Visit Provider Nurse Practitioner Family
DX: Z79.01 Long term (current) use of anticoagulants (principal); D68.59 Other primary thrombophilia
CPT/HCPCS: 36415; 85610

== ENCOUNTER 2023-10-23 01:30 | Outpatient (CLI) | payer OTHER, SELFPAY ==
[2023-10-23 13:06] LABS: INR 2.6 (0.9-1.1); Prothrombin Time 23.9 sec (9.1-11.1)
== END 2023-10-23 01:31 | disposition home or self-care (01) ==
LOC: LOS 01:30
PROVIDERS: PCP Nurse Practitioner Family; Visit Provider Nurse Practitioner Family
DX: Z79.01 Long term (current) use of anticoagulants (principal); D68.59 Other primary thrombophilia
CPT/HCPCS: 36415; 85610

== ENCOUNTER 2023-10-30 01:41 | Outpatient (CLI) | payer OTHER, SELFPAY ==
[2023-10-30 12:25] LABS: INR 2.8 (0.9-1.1); Prothrombin Time 25.8 sec (9.1-11.1)
== END 2023-10-30 01:42 | disposition home or self-care (01) ==
LOC: LOS 01:42
PROVIDERS: PCP Nurse Practitioner Family; Visit Provider Nurse Practitioner Family
DX: Z79.01 Long term (current) use of anticoagulants (principal); D68.59 Other primary thrombophilia
CPT/HCPCS: 36415; 85610

== ENCOUNTER 2023-11-06 01:15 | Outpatient (CLI) | payer OTHER, SELFPAY ==
[2023-11-06 13:21] LABS: INR 2.2 (0.9-1.1); Prothrombin Time 20.6 sec (9.1-11.1)
== END 2023-11-06 01:16 | disposition home or self-care (01) ==
LOC: LOS 01:15
PROVIDERS: PCP Nurse Practitioner Family; Visit Provider Nurse Practitioner Family
DX: D68.59 Other primary thrombophilia (principal); Z79.01 Long term (current) use of anticoagulants
CPT/HCPCS: 36415; 85610

== ENCOUNTER 2023-11-12 03:26 | Outpatient (CLI) | payer OTHER, SELFPAY ==
[2023-11-12 12:24] LABS: INR 2.4 (0.9-1.1)
== END 2023-11-12 03:27 | disposition home or self-care (01) ==
LOC: LOS 03:26
PROVIDERS: PCP Nurse Practitioner Family; Visit Provider Nurse Practitioner Family
DX: D68.59 Other primary thrombophilia (principal); Z79.01 Long term (current) use of anticoagulants
CPT/HCPCS: 36415; 85610

== ENCOUNTER 2023-12-18 01:40 | Outpatient (CLI) | payer OTHER, SELFPAY ==
[2023-12-18 12:25] LABS: INR 2.4 (0.9-1.1); Prothrombin Time 22.7 sec (9.1-11.1)
== END 2023-12-18 01:41 | disposition home or self-care (01) ==
LOC: LOS 01:40
PROVIDERS: PCP Nurse Practitioner Family; Visit Provider Nurse Practitioner Family
DX: Z79.01 Long term (current) use of anticoagulants (principal); D68.59 Other primary thrombophilia
CPT/HCPCS: 36415; 85610

== ENCOUNTER 2023-12-25 02:28 | Outpatient (CLI) | payer OTHER, SELFPAY ==
[2023-12-25 22:21] LABS: PSA, Diagnostic 0.7 ng/mL (<=4.5)
== END 2023-12-25 02:29 | disposition home or self-care (01) ==
LOC: LOS 02:29
PROVIDERS: PCP Nurse Practitioner Family; Visit Provider Urology
DX: N40.1 Benign prostatic hyperplasia with lower urinary tract symptoms (principal); Z80.42 Family history of malignant neoplasm of prostate
CPT/HCPCS: 36415; 84153

== ENCOUNTER 2024-01-11 04:55 | Outpatient (CLI) | payer OTHER, SELFPAY ==
[2024-01-11 12:36] LABS: Prothrombin Time 35.3 sec (9.1-11.1)
== END 2024-01-11 04:56 | disposition home or self-care (01) ==
LOC: LOS 04:55
PROVIDERS: PCP Nurse Practitioner Family; Visit Provider Nurse Practitioner Family
DX: Z79.01 Long term (current) use of anticoagulants (principal); D68.59 Other primary thrombophilia
CPT/HCPCS: 36415; 85610

== ENCOUNTER 2024-01-18 05:32 | Outpatient (CLI) | payer OTHER, SELFPAY ==
[2024-01-18] MEDS: Inhaler, Assist Device 1 EACH MC (14:08)
[2024-01-18] MEDS: Levalbuterol HFA 15 GM INH 4 PUFF IH (14:08)
--- NOTE | 2024-01-19 12:03 | W.PFT ---
Date of service: 01/18/24 Time of Service: 12:59 Pulmonary Function Test Result Indications: Lung scarring Interpretation Spirometry: There is no airflow limitation. There is no bronchodilator response. Lung Volumes: Normal lung volumes Diffusion Capacity: Normal diffusion Airway Pressure: Normal airways resistance Impression Normal pulmonary function testing Clinical Correlation therefore is recommended.
== END 2024-01-18 05:33 | disposition home or self-care (01) ==
PROVIDERS: PCP Nurse Practitioner Family; Visit Provider Nurse Practitioner Family
DX: R09.89 Other specified symptoms and signs involving the circulatory and respiratory systems (principal); J98.4 Other disorders of lung
CPT/HCPCS: 94060; 94726; 94729

== ENCOUNTER 2024-01-18 12:27 | Outpatient (CLI) | payer OTHER, SELFPAY ==
[2024-01-18 12:52] LABS: INR 3.1 (0.9-1.1); Prothrombin Time 28.3 sec (9.1-11.1)
== END 2024-01-18 12:28 | disposition home or self-care (01) ==
PROVIDERS: PCP Nurse Practitioner Family; Visit Provider Nurse Practitioner Family
DX: I74.3 Embolism and thrombosis of arteries of the lower extremities (principal); Z79.01 Long term (current) use of anticoagulants
CPT/HCPCS: 36415; 85610

== ENCOUNTER 2024-01-26 04:38 | Outpatient (CLI) | payer OTHER, SELFPAY ==
[2024-01-26 10:52] LABS: INR 2.3 (0.9-1.1); Prothrombin Time 21.4 sec (9.1-11.1)
[2024-01-26 18:51] LABS: Rheumatoid Factor <8.6 IU/mL (<12.0)
[2024-01-27 07:04] LABS: Cyclic Citrullinated Peptide <2.5 U/mL (<5.0)
[2024-01-27 12:41] LABS: ANA Interpretation Negative (Negative)
[2024-01-28 11:54] LABS: TB Interpretation Negative (Negative); TB1 Ag minus Nil 0.01 IU/ml; TB2 Ag minus Nil 0.02 IU/mL
[2024-02-01 11:41] LABS: Alter tenuis/alternata IgG 3.2 mcg/mL (<12.0); Aspergillus fumigatus IgG 11.7 mcg/mL (<46.0); Aureobasidium pullulans IgG 4.4 mcg/mL (<18.0); Laceyella sacchari IgG 3.1 mcg/mL (<25.0); Micropolyspora faeni IgG <2.0 mcg/mL (<5.0); Penicillium Chrysogenum IgG 8.8 mcg/mL (<22.0)
== END 2024-01-26 04:39 | disposition home or self-care (01) ==
PROVIDERS: Student in an Organized Health Care Education/Training Program; PCP Nurse Practitioner Family; Visit Provider Nurse Practitioner Family
DX: J84.9 Interstitial pulmonary disease, unspecified (principal)
CPT/HCPCS: 36415; 86001; 86200; 85610; 86038; 86431; 86480

== ENCOUNTER 2024-02-12 01:47 | Outpatient (CLI) | payer OTHER, SELFPAY ==
[2024-02-12 12:30] LABS: INR 2.5 (0.9-1.1); Prothrombin Time 23.5 sec (9.1-11.1)
== END 2024-02-12 01:48 | disposition home or self-care (01) ==
LOC: LOS 01:47
PROVIDERS: PCP Nurse Practitioner Family; Visit Provider Nurse Practitioner Family
DX: D68.59 Other primary thrombophilia (principal); Z79.01 Long term (current) use of anticoagulants
CPT/HCPCS: 36415; 85610

== ENCOUNTER 2024-03-18 00:56 | Outpatient (CLI) | payer OTHER, SELFPAY ==
[2024-03-18 13:02] LABS: INR 2.5 (0.9-1.1); Prothrombin Time 23.5 sec (9.1-11.1)
== END 2024-03-18 00:57 | disposition home or self-care (01) ==
LOC: LOS 00:56
PROVIDERS: PCP Nurse Practitioner Family; Visit Provider Nurse Practitioner Family
DX: Z79.01 Long term (current) use of anticoagulants (principal); D68.59 Other primary thrombophilia
CPT/HCPCS: 36415; 85610

== ENCOUNTER 2024-04-21 04:27 | Outpatient (CLI) | payer OTHER, SELFPAY ==
[2024-04-21 12:45] LABS: INR 2.3 (0.9-1.1); Prothrombin Time 21.2 sec (9.1-11.1)
== END 2024-04-21 04:28 | disposition home or self-care (01) ==
LOC: LOS 04:27
PROVIDERS: PCP Nurse Practitioner Family; Visit Provider Nurse Practitioner Family
DX: Z79.01 Long term (current) use of anticoagulants (principal); D68.59 Other primary thrombophilia
CPT/HCPCS: 36415; 85610

== ENCOUNTER 2024-05-27 02:53 | Outpatient (CLI) | payer OTHER, SELFPAY ==
[2024-05-27 13:22] LABS: INR 2.6 (0.9-1.1)
== END 2024-05-27 02:54 | disposition home or self-care (01) ==
LOC: LOS 02:53
PROVIDERS: PCP Nurse Practitioner Family; Visit Provider Nurse Practitioner Family
DX: Z79.01 Long term (current) use of anticoagulants (principal); D68.59 Other primary thrombophilia
CPT/HCPCS: 36415; 85610

== ENCOUNTER 2024-07-01 01:17 | Outpatient (CLI) | payer OTHER, SELFPAY ==
[2024-07-01 12:50] LABS: INR 2.5 (0.9-1.1)
== END 2024-07-01 01:18 | disposition home or self-care (01) ==
LOC: LOS 01:17
PROVIDERS: PCP Nurse Practitioner Family; Visit Provider Nurse Practitioner Family
DX: Z79.01 Long term (current) use of anticoagulants (principal); D68.59 Other primary thrombophilia
CPT/HCPCS: 36415; 85610

== ENCOUNTER 2024-07-07 10:51 | Outpatient (REF) | payer OTHER, SELFPAY ==
[2024-07-07 13:16] LABS: Abs Immature Grans 0.01 10^3/uL (0.0-0.06); Absolute Basophil Count 0.07 10^3/uL (0.0-0.2); Absolute Eosinophil Count 0.78 10^3/uL (0.0-0.7); Absolute Lymphocyte Count 1.86 10^3/uL (1.2-3.4); Absolute Monocyte Count 0.66 10^3/uL (0.1-0.8); Absolute Neutrophil Count 3.26 10^3/uL (1.2-6.7); Basophils % 1.1 %; Eosinophils % 11.7 %; HCT 46.5 % (40.0-50.0); HGB 15.8 g/dL (13.5-17.5); Immature Grans % 0.2 %; MCH 32.3 pg (27.0-33.0); MCV 95 fL (80-95); MPV 10.6 fL (8.0-11.0); Monocytes % 9.9 %; Neutrophils % 49.1 %; Platelet Count 184 10^3/uL (130-400); RBC 4.89 10^6/uL (4.36-5.78); RDW 13.2 % (11.8-14.1); RDW-SD 46.6 fL; WBC 6.64 10^3/uL (4.4-10.8)
[2024-07-07 13:52] LABS: ALT 43 U/L (16-63); AST 28 U/L (15-37); Albumin 3.7 g/dL (3.4-5.0); Alkaline Phosphatase 59 U/L (46-116); Anion Gap 8.2 mmol/L (3-11); BUN 24 mg/dL (7-18); Bilirubin, Total 0.44 mg/dL (0.2-1.0); CO2 27.8 mmol/L (21.0-32.0); CREATININE 0.8 mg/dL (0.70-1.30); Calcium 8.9 mg/dL (8.5-10.1); Chloride 102 mmol/L (98-107); Estimated GFR 99.44 (mL/min/1.73m2); Glucose 86 mg/dL (74-106); Potassium 4.7 mmol/L (3.5-5.1); Sodium 138 mmol/L (136-145); TSH (W/Ref FT4) 1.17 uIU/mL (0.36-3.74); Total Protein 6.8 g/dL (6.4-8.2)
== END 2024-07-07 10:52 | disposition home or self-care (01) ==
LOC: LBN 10:51
PROVIDERS: PCP Nurse Practitioner Family; Visit Provider Nurse Practitioner Family
DX: R53.83 Other fatigue (principal); B35.3 Tinea pedis; R53.81 Other malaise
CPT/HCPCS: 80053; 84443; 85025

== ENCOUNTER 2024-08-10 09:34 | Outpatient (CLI) | payer OTHER, SELFPAY ==
[2024-08-10 12:31] LABS: INR 2.1 (0.9-1.1); Prothrombin Time 19.8 sec (9.1-11.1)
== END 2024-08-10 09:35 | disposition home or self-care (01) ==
LOC: LOS 09:34
PROVIDERS: PCP Nurse Practitioner Family; Visit Provider Nurse Practitioner Family
DX: Z79.01 Long term (current) use of anticoagulants (principal); D68.59 Other primary thrombophilia
CPT/HCPCS: 36415; 85610

== ENCOUNTER 2024-09-05 03:51 | Outpatient (CLI) | payer OTHER, SELFPAY ==
--- NOTE | 2024-09-06 10:58 | W.PFT ---
Date of service: 09/05/24 Time of Service: 08:06 Pulmonary Function Test Result Indications: ILD Interpretation Spirometry: There is no airflow limitation. Lung Volumes: The TLC is mildly reduced. Diffusion Capacity: Normal diffusion Airway Pressure: Increased airways resistance Impression There is a very mild restrictive lung disease with a normal diffusion. This could represent early ILD or neuromuscular weakness. Clinical Correlation therefore is recommended.
== END 2024-09-05 03:52 | disposition home or self-care (01) ==
LOC: RT 03:52
PROVIDERS: PCP Nurse Practitioner Family; Visit Provider Student in an Organized Health Care Education/Training Program
DX: J84.9 Interstitial pulmonary disease, unspecified (principal)
CPT/HCPCS: 94726; 94729; 94010

== ENCOUNTER 2024-09-05 09:44 | Outpatient (CLI) | payer OTHER, SELFPAY ==
[2024-09-05 10:32] LABS: INR 2.4 (0.9-1.1); Prothrombin Time 22.7 sec (9.1-11.1)
== END 2024-09-05 09:45 | disposition home or self-care (01) ==
LOC: LBO 09:44
PROVIDERS: PCP Nurse Practitioner Family; Visit Provider Family Medicine
DX: Z79.01 Long term (current) use of anticoagulants (principal); D68.59 Other primary thrombophilia
CPT/HCPCS: 36415; 85610

== ENCOUNTER 2024-10-14 02:38 | Outpatient (CLI) | payer OTHER, SELFPAY ==
[2024-10-14 12:35] LABS: INR 2.3 (0.9-1.1); Prothrombin Time 21.2 sec (9.1-11.1)
== END 2024-10-14 02:39 | disposition home or self-care (01) ==
LOC: LOS 02:38
PROVIDERS: PCP Nurse Practitioner Family; Visit Provider Nurse Practitioner Family
DX: Z79.01 Long term (current) use of anticoagulants (principal); D68.59 Other primary thrombophilia
CPT/HCPCS: 36415; 85610

== ENCOUNTER 2024-11-11 01:02 | Outpatient (CLI) | payer OTHER, SELFPAY ==
[2024-11-11 12:25] LABS: INR 2.6 (0.9-1.1)
== END 2024-11-11 01:03 | disposition home or self-care (01) ==
PROVIDERS: PCP Nurse Practitioner Family; Visit Provider Nurse Practitioner Family
DX: Z79.01 Long term (current) use of anticoagulants (principal); D69.59 Other secondary thrombocytopenia
CPT/HCPCS: 36415; 85610

== ENCOUNTER 2024-12-16 02:17 | Outpatient (CLI) | payer OTHER, SELFPAY ==
[2024-12-16 12:55] LABS: INR 1.6 (0.9-1.1); Prothrombin Time 15.3 sec (9.1-11.1)
== END 2024-12-16 02:18 | disposition home or self-care (01) ==
LOC: LOS 02:18
PROVIDERS: PCP Nurse Practitioner Family; Visit Provider Nurse Practitioner Family
DX: Z79.01 Long term (current) use of anticoagulants (principal); D69.59 Other secondary thrombocytopenia
CPT/HCPCS: 36415; 85610

== ENCOUNTER 2024-12-23 00:45 | Outpatient (CLI) | payer OTHER, SELFPAY ==
[2024-12-23 12:29] LABS: INR 1.7 (0.9-1.1); Prothrombin Time 16.9 sec (9.1-11.1)
== END 2024-12-23 00:46 | disposition home or self-care (01) ==
LOC: LOS 00:45
PROVIDERS: PCP Nurse Practitioner Family; Visit Provider Nurse Practitioner Family
DX: Z79.01 Long term (current) use of anticoagulants (principal); D69.59 Other secondary thrombocytopenia
CPT/HCPCS: 36415; 85610

== ENCOUNTER 2024-12-30 01:14 | Outpatient (CLI) | payer OTHER, SELFPAY ==
[2024-12-30 12:51] LABS: INR 1.8 (0.9-1.1); Prothrombin Time 17.4 sec (9.1-11.1)
== END 2024-12-30 01:15 | disposition home or self-care (01) ==
LOC: LOS 01:15
PROVIDERS: PCP Nurse Practitioner Family; Visit Provider Nurse Practitioner Family
DX: D68.59 Other primary thrombophilia (principal); Z79.01 Long term (current) use of anticoagulants
CPT/HCPCS: 36415; 85610

== ENCOUNTER 2025-01-06 00:39 | Outpatient (CLI) | payer OTHER, SELFPAY ==
[2025-01-06 13:24] LABS: INR 1.8 (0.9-1.1); Prothrombin Time 17.7 sec (9.1-11.1)
== END 2025-01-06 00:40 | disposition home or self-care (01) ==
LOC: LOS 00:39
PROVIDERS: PCP Nurse Practitioner Family; Visit Provider Nurse Practitioner Family
DX: Z79.01 Long term (current) use of anticoagulants (principal); D68.59 Other primary thrombophilia
CPT/HCPCS: 36415; 85610

== ENCOUNTER 2025-01-13 00:42 | Outpatient (CLI) | payer OTHER, SELFPAY ==
[2025-01-13 12:39] LABS: Prothrombin Time 19.4 sec (9.1-11.1)
== END 2025-01-13 00:43 | disposition home or self-care (01) ==
LOC: LOS 00:42
PROVIDERS: PCP Nurse Practitioner Family; Visit Provider Family Medicine
DX: Z79.01 Long term (current) use of anticoagulants (principal); D68.59 Other primary thrombophilia
CPT/HCPCS: 36415; 85610

== ENCOUNTER 2025-01-23 11:38 | Outpatient (CLI) | payer OTHER, SELFPAY ==
--- NOTE | 2025-01-23 10:15 | DI.RAD_ITS ---
Exam(s) XR CHEST 2V PA LATERAL EXAM: XR CHEST 2V PA LATERAL CLINICAL HISTORY: right sided chest pain and wheezing J84.9 Interstitial Pulmonary Disease. TECHNIQUE: 2D digital imaging was performed. COMPARISON: CR CHEST 2 VIEWS PA,LAT from 02/27/[address] CHEST WO from 01/15/2024 FINDINGS: 2 views: Heart size is normal. The mediastinum is not widened. COPD findings again noted and bilateral upper lobe scarring and nodularity evident. Remainder of the left lung is clear. Slightly increased markings noted in the lower right lung field which may indic ate mild infiltrate. No pleural effusions. No pulmonary edema. IMPRESSION: Chronic bilateral upper lobe findings. Possible subtle infiltrate in right lower lobe. There are no pleural effusions. DATA REPOSITORY: RADIATION DOSE DELIVERED:
== END 2025-01-23 11:58 ==
LOC: DI 11:42
PROVIDERS: PCP Nurse Practitioner Family; Visit Provider Physician Assistant Surgical
DX: J84.9 Interstitial pulmonary disease, unspecified (principal)
CPT/HCPCS: 71046

== ENCOUNTER 2025-01-26 02:58 | Outpatient (CLI) | payer OTHER, SELFPAY ==
[2025-01-26 12:41] LABS: INR 2.6 (0.9-1.1); Prothrombin Time 24.3 sec (9.1-11.1)
== END 2025-01-26 02:59 | disposition home or self-care (01) ==
LOC: LOS 02:58
PROVIDERS: PCP Nurse Practitioner Family; Visit Provider Nurse Practitioner Family
DX: Z79.01 Long term (current) use of anticoagulants (principal); D69.59 Other secondary thrombocytopenia
CPT/HCPCS: 36415; 85610

== ENCOUNTER 2025-03-03 00:57 | Outpatient (CLI) | payer OTHER, SELFPAY ==
[2025-03-03 12:23] LABS: Prothrombin Time 29.2 sec (9.1-11.1)
[2025-03-03 12:29] LABS: INR 3.1 (0.9-1.1)
== END 2025-03-03 00:58 | disposition home or self-care (01) ==
LOC: LOS 00:57
PROVIDERS: PCP Nurse Practitioner Family; Visit Provider Nurse Practitioner Family
DX: Z79.01 Long term (current) use of anticoagulants (principal); D68.59 Other primary thrombophilia
CPT/HCPCS: 36415; 85610

== ENCOUNTER 2025-03-10 00:56 | Outpatient (CLI) | payer OTHER, SELFPAY ==
[2025-03-10 12:48] LABS: INR 2.6 (0.9-1.1); Prothrombin Time 24.5 sec (9.1-11.1)
== END 2025-03-10 00:57 | disposition home or self-care (01) ==
LOC: LOS 00:56
PROVIDERS: PCP Nurse Practitioner Family; Visit Provider Nurse Practitioner Family
DX: Z79.01 Long term (current) use of anticoagulants (principal); D69.59 Other secondary thrombocytopenia
CPT/HCPCS: 36415; 85610

== ENCOUNTER 2025-03-17 00:44 | Outpatient (CLI) | payer OTHER, SELFPAY ==
[2025-03-17 12:59] LABS: Prothrombin Time 28.1 sec (9.1-11.1)
[2025-03-17 18:19] LABS: PSA, Diagnostic 0.9 ng/mL (<=4.5)
== END 2025-03-17 00:45 | disposition home or self-care (01) ==
LOC: LOS 00:45
PROVIDERS: Urology; PCP Nurse Practitioner Family; Visit Provider Nurse Practitioner Family
DX: R97.20 Elevated prostate specific antigen [PSA] (principal); Z79.01 Long term (current) use of anticoagulants; D68.59 Other primary thrombophilia
CPT/HCPCS: 36415; 84153; 85610

== ENCOUNTER 2025-04-07 00:55 | Outpatient (CLI) | payer OTHER, SELFPAY ==
[2025-04-07 12:37] LABS: INR 2.6 (0.9-1.1); Prothrombin Time 24.4 sec (9.1-11.1)
== END 2025-04-07 00:56 | disposition home or self-care (01) ==
LOC: LOS 00:55
PROVIDERS: PCP Nurse Practitioner Family; Visit Provider Nurse Practitioner Family
DX: Z79.01 Long term (current) use of anticoagulants (principal); D68.59 Other primary thrombophilia
CPT/HCPCS: 36415; 85610

== ENCOUNTER 2025-05-12 01:04 | Outpatient (CLI) | payer OTHER, SELFPAY ==
[2025-05-12 13:20] LABS: Prothrombin Time 27.6 sec (9.1-11.1)
== END 2025-05-12 01:05 | disposition home or self-care (01) ==
LOC: LOS 01:04
PROVIDERS: PCP Nurse Practitioner Family; Visit Provider Nurse Practitioner Family
DX: Z79.01 Long term (current) use of anticoagulants (principal); D68.59 Other primary thrombophilia
CPT/HCPCS: 36415; 85610

== ENCOUNTER 2025-06-23 02:03 | Outpatient (CLI) | payer OTHER, SELFPAY ==
[2025-06-23 13:09] LABS: INR 3.2 (0.9-1.1); Prothrombin Time 29.8 sec (9.1-11.1)
== END 2025-06-23 02:04 | disposition home or self-care (01) ==
PROVIDERS: PCP Nurse Practitioner Family; Visit Provider Nurse Practitioner Family
DX: Z79.01 Long term (current) use of anticoagulants (principal); D69.59 Other secondary thrombocytopenia
CPT/HCPCS: 36415; 85610

== ENCOUNTER 2025-06-30 01:10 | Outpatient (CLI) | payer OTHER, SELFPAY ==
[2025-06-30 12:29] LABS: INR 2.5 (0.9-1.1); Prothrombin Time 23.6 sec (9.1-11.1)
== END 2025-06-30 01:11 | disposition home or self-care (01) ==
LOC: LOS 01:10
PROVIDERS: PCP Nurse Practitioner Family; Visit Provider Nurse Practitioner Family
DX: Z79.01 Long term (current) use of anticoagulants (principal); D68.59 Other primary thrombophilia
CPT/HCPCS: 36415; 85610

== ENCOUNTER 2025-07-12 03:15 | Outpatient (CLI) | payer OTHER, SELFPAY ==
[2025-07-12 12:28] LABS: INR 2.7 (0.9-1.1); Prothrombin Time 25.3 sec (9.1-11.1)
== END 2025-07-12 03:16 | disposition home or self-care (01) ==
LOC: LOS 03:15
PROVIDERS: PCP Nurse Practitioner Family; Visit Provider Nurse Practitioner Family
DX: Z79.01 Long term (current) use of anticoagulants (principal); D68.59 Other primary thrombophilia
CPT/HCPCS: 36415; 85610

== ENCOUNTER 2025-08-11 00:38 | Outpatient (CLI) | payer OTHER, SELFPAY ==
[2025-08-11 14:31] LABS: INR 3.2 (0.9-1.1); Prothrombin Time 29.9 sec (9.1-11.1)
== END 2025-08-11 00:39 | disposition home or self-care (01) ==
LOC: LOS 00:38
PROVIDERS: PCP Nurse Practitioner Family; Visit Provider Nurse Practitioner Family
DX: Z79.01 Long term (current) use of anticoagulants (principal); D69.59 Other secondary thrombocytopenia
CPT/HCPCS: 36415; 85610

== ENCOUNTER 2025-08-18 00:24 | Outpatient (CLI) | payer OTHER, SELFPAY ==
[2025-08-18 14:23] LABS: INR 3.4 (0.9-1.1); Prothrombin Time 31.2 sec (9.1-11.1)
== END 2025-08-18 00:25 | disposition home or self-care (01) ==
LOC: LOS 00:24
PROVIDERS: PCP Nurse Practitioner Family; Visit Provider Nurse Practitioner Family
DX: Z79.01 Long term (current) use of anticoagulants (principal); D68.59 Other primary thrombophilia
CPT/HCPCS: 36415; 85610

== ENCOUNTER 2025-08-24 00:32 | Outpatient (CLI) | payer OTHER, SELFPAY ==
[2025-08-24 14:10] LABS: INR 3.0 (0.9-1.1); Prothrombin Time 27.8 sec (9.1-11.1)
== END 2025-08-24 00:33 | disposition home or self-care (01) ==
LOC: LOS 00:32
PROVIDERS: PCP Nurse Practitioner Family; Visit Provider Nurse Practitioner Family
DX: Z79.01 Long term (current) use of anticoagulants (principal); D68.59 Other primary thrombophilia
CPT/HCPCS: 36415; 85610

== ENCOUNTER 2025-09-07 00:31 | Outpatient (CLI) | payer OTHER, SELFPAY ==
[2025-09-07 14:16] LABS: INR 3.6 (0.9-1.1); Prothrombin Time 33.4 sec (9.1-11.1)
== END 2025-09-07 00:32 | disposition home or self-care (01) ==
LOC: LOS 00:31
PROVIDERS: PCP Nurse Practitioner Family; Visit Provider Nurse Practitioner Family
DX: Z79.01 Long term (current) use of anticoagulants (principal); D68.59 Other primary thrombophilia
CPT/HCPCS: 36415; 85610

== ENCOUNTER 2025-09-14 00:21 | Outpatient (CLI) | payer OTHER, SELFPAY ==
[2025-09-14 14:27] LABS: INR 1.9 (0.9-1.1); Prothrombin Time 18.0 sec (9.1-11.1)
== END 2025-09-14 00:22 | disposition home or self-care (01) ==
LOC: LOS 00:21
PROVIDERS: PCP Nurse Practitioner Family; Visit Provider Nurse Practitioner Family
DX: Z79.01 Long term (current) use of anticoagulants (principal); D68.59 Other primary thrombophilia
CPT/HCPCS: 36415; 85610

== ENCOUNTER 2025-09-20 01:58 | Outpatient (CLI) | payer OTHER, SELFPAY ==
[2025-09-20 14:00] LABS: Abs Immature Grans 0.01 10^3/uL (0.0-0.06); HCT 45.9 % (40.0-50.0); HGB 15.1 g/dL (13.5-17.5); Immature Grans % 0.1 %; MCH 31.2 pg (27.0-33.0); MCHC 32.9 % (32.0-36.0); MCV 95 fL (80-95); MPV 10.4 fL (8.0-11.0); Platelet Count 215 10^3/uL (130-400); RBC 4.84 10^6/uL (4.36-5.78); RDW 13.2 % (11.8-14.1); RDW-SD 46.9 fL; WBC 7.63 10^3/uL (4.4-10.8)
[2025-09-20 14:07] LABS: INR 2.7 (0.9-1.1); Prothrombin Time 25.7 sec (9.1-11.1)
[2025-09-20 14:35] LABS: ALT 42 U/L (16-63); AST 24 U/L (15-37); Albumin 3.9 g/dL (3.4-5.0); Alkaline Phosphatase 63 U/L (46-116); Anion Gap 9.6 mmol/L (3-11); BUN 30 mg/dL (7-18); Bilirubin, Total 0.5 mg/dL (0.2-1.0); CO2 26.4 mmol/L (21.0-32.0); Calcium 8.7 mg/dL (8.5-10.1); Calculated LDL 120 mg/dL (<100); Chloride 100 mmol/L (98-107); Cholesterol 202 mg/dL (<200); Estimated GFR 98.83 (mL/min/1.73m2); Glucose 81 mg/dL (74-106); HDL Cholesterol 55 mg/dL (>or=40); Potassium 4.5 mmol/L (3.5-5.1); Sodium 136 mmol/L (136-145); Total Protein 7.5 g/dL (6.4-8.2); Triglyceride 136 mg/dL (<150)
[2025-09-21 19:06] LABS: Hepatitis C Ab w Rflx HCV PCR Negative (Negative)
[2025-09-21 19:07] LABS: HIV-1/2 Ag & Ab Screen Negative (Negative)
[2025-09-21 19:11] LABS: HBs Antibody, Quant <3.1 mIU/mL (See Note); Hepatitis B Surface Antigen Negative (Negative)
[2025-09-22 09:09] LABS: Lyme Ab w Rflx to Lyme Confirm Negative (Negative)
[2025-09-24 12:33] LABS: B. miyamotoi PCR Negative (Negative); Babesia divergens/MO-1 Negative (Negative); Ehrlichia muris eauclairensis Negative (Negative)
== END 2025-09-20 01:59 | disposition home or self-care (01) ==
LOC: LOS 01:58
PROVIDERS: PCP Nurse Practitioner Family; Visit Provider Nurse Practitioner Family
DX: I83.009 Varicose veins of unspecified lower extremity with ulcer of unspecified site (principal); L97.909 Non-pressure chronic ulcer of unspecified part of unspecified lower leg with unspecified severity; Z11.4 Encounter for screening for human immunodeficiency virus [HIV]; Z13.220 Encounter for screening for lipoid disorders; Z11.59 Encounter for screening for other viral diseases; W57.XXXA Bitten or stung by nonvenomous insect and other nonvenomous arthropods, initial encounter
CPT/HCPCS: 36415; 80053; 80061; 86704; 86706; 86803; 87340; 87389; 87798; 85025; 85610; 86618

== ENCOUNTER 2025-09-28 00:29 | Outpatient (CLI) | payer OTHER, SELFPAY ==
[2025-09-28 15:15] LABS: INR 3.8 (0.9-1.1); Prothrombin Time 34.7 sec (9.1-11.1)
== END 2025-09-28 00:30 | disposition home or self-care (01) ==
LOC: LOS 00:29
PROVIDERS: PCP Nurse Practitioner Family; Visit Provider Nurse Practitioner Family
DX: Z79.01 Long term (current) use of anticoagulants (principal); D68.59 Other primary thrombophilia
CPT/HCPCS: 36415; 85610

== ENCOUNTER 2025-10-05 00:18 | Outpatient (CLI) | payer OTHER, SELFPAY ==
[2025-10-05 14:13] LABS: INR 2.4 (0.9-1.1); Prothrombin Time 23.0 sec (9.1-11.1)
== END 2025-10-05 00:19 | disposition home or self-care (01) ==
LOC: LOS 00:18
PROVIDERS: PCP Nurse Practitioner Family; Visit Provider Nurse Practitioner Family
DX: Z79.01 Long term (current) use of anticoagulants (principal); D68.59 Other primary thrombophilia
CPT/HCPCS: 36415; 85610

== ENCOUNTER 2025-10-18 02:11 | Outpatient (CLI) | payer OTHER, SELFPAY ==
[2025-10-18 12:42] LABS: INR 2.8 (0.9-1.1); Prothrombin Time 26.2 sec (9.1-11.1)
== END 2025-10-18 02:12 | disposition home or self-care (01) ==
LOC: LOS 02:11
PROVIDERS: PCP Nurse Practitioner Family; Visit Provider Nurse Practitioner Family
DX: Z79.01 Long term (current) use of anticoagulants (principal); D68.59 Other primary thrombophilia
CPT/HCPCS: 36415; 85610

== ENCOUNTER 2025-10-30 10:10 | Outpatient (CLI) | payer OTHER, SELFPAY ==
[2025-10-30 11:01] LABS: INR 3.3 (0.9-1.1); Prothrombin Time 30.6 sec (9.1-11.1)
== END 2025-10-30 10:11 | disposition home or self-care (01) ==
LOC: LBO 10:12
PROVIDERS: PCP Nurse Practitioner Family; Visit Provider Nurse Practitioner Family
DX: Z51.89 Encounter for other specified aftercare (principal)
CPT/HCPCS: 36415; 85610

== ENCOUNTER 2025-11-06 07:40 | Outpatient (CLI) | payer OTHER, SELFPAY ==
[2025-11-06 15:32] LABS: INR 2.5 (0.9-1.1); Prothrombin Time 23.3 sec (9.1-11.1)
== END 2025-11-06 07:41 | disposition home or self-care (01) ==
LOC: LOS 07:40
PROVIDERS: PCP Nurse Practitioner Family; Visit Provider Nurse Practitioner Family
DX: Z79.01 Long term (current) use of anticoagulants (principal); D68.59 Other primary thrombophilia
CPT/HCPCS: 36415; 85610

== ENCOUNTER 2025-11-21 00:22 | Outpatient (CLI) | payer OTHER, SELFPAY ==
[2025-11-21 11:31] LABS: INR 2.8 (0.9-1.1); Prothrombin Time 26.3 sec (9.1-11.1)
[2025-11-21 18:22] LABS: PSA, Diagnostic 0.9 ng/mL (<=4.5)
== END 2025-11-21 00:23 | disposition home or self-care (01) ==
LOC: LBO 00:22
PROVIDERS: PCP Nurse Practitioner Family; Visit Provider Urology
DX: Z79.01 Long term (current) use of anticoagulants (principal); D68.59 Other primary thrombophilia; Z80.42 Family history of malignant neoplasm of prostate
CPT/HCPCS: 36415; 84153; 85610